=== PATIENT | male | born 1950 | race Caucasian/White ===

== ENCOUNTER 2018-08-14 07:18 | Emergency (ER) ==
[2018-08-14 07:26] VITALS: TEMP 96.8; BMI 28.5
--- NOTE | 2018-08-14 07:53 | ED.PDOC ---
General ED Provider: Dr. ESTIVEN CAO Chief Complaint: Chest Pain Stated Complaint: Chest fullness and pressure. Onset yesterday afternoon with associated SOB and sensation of rapid heart rate. Sensation of pressure and fullness going into anterior lateral neck bilaterally. Admits to sensing similar sensation in the past.Denies sweating, nausea or vomiting. When going to bed last night sensation seemed to lessen and he rested well however upon awakening this morning and getting up symptoms returned and seemed worsen so he had his bring him to ER Time Seen by Physician: 07:28 Mode of Arrival: Walk-In Information Source: Patient, Family Exam Limitations: No limitations Primary Care Provider: ESTIVEN ARRIOLA Nursing and Triage Documentation Reviewed and Agree: Yes Does patient meet sepsis criteria?: No System Inflammatory Response Syndrome: Not Applicable Sepsis Protocol: For patient's 13 years and over: Temp is 96.8 and below OR 101 and greater Pulse >90 BPM Resp >20/minute Acutely Altered Mental Status Are patient's symptoms suggestive of a new infection, such as: -Pneumonia -Skin, Soft Tissue -Endocarditis -UTI -Bone, Joint Infection -Implantable Device -Acute Abdominal Infection -Wound Infection -Meningitis -Blood Stream Catheter Infection -Unknown Cardiovascular Complaint Exam - Palpitations Complaint/Exam Onset/Duration: 24 hrs Symptoms Are: Still present Timing: Constant Initial Severity: Moderate Current Severity: Moderate Character: Reports: Fast, Irregular, Pounding Aggravating: Reports: Exertion (Stressful situatioins) Alleviating: Reports: Rest, Position Associated Signs and Symptoms: Reports: Lightheadedness, Dizziness, Chest pain, Shortness of breath Related History: Similar episode Related Surgical History: Reports: None Cardiac Risk Factors: Reports: Family history Pulmonary Embolism Risk Factors: Reports: None Atrial Fibrillation Risk Factors: Reports: None Thyroid Exam: Normal Differential Diagnoses: Mitral Valve Prolapse, CAD, Paroxysmal SVT, Other ( anxiety) Quality Indicators for AMI: EKG in 10min. Quality Indicator For Non-Traumatic Chest Pain/Syncope: EKG Performed Review of Systems - Review Of Systems Constitutional: Reports: No symptoms Eyes: Reports: No symptoms Ears, Nose, Mouth, Throat: Reports: No symptoms Respiratory: Reports: No symptoms, Other Cardiac: Reports: Irregular heart rate, Palpitations GI: Reports: No symptoms : Reports: No symptoms Musculoskeletal: Reports: No symptoms Skin: Reports: No symptoms Neurological: Reports: No symptoms Endocrine: Reports: No symptoms Hematologic/Lymphatic: Reports: No symptoms All Other Systems: Reviewed and Negative Past Medical History - Past Medical History Previously Healthy: Yes Endocrine: Reports: None Cardiovascular: Reports: Other (rapid heart rate and palpitations) Respiratory: Reports: None Hematological: Reports: None Gastrointestinal: Reports: None Genitourinary: Reports: None Neuro/Psych: Reports: None Musculoskeletal: Reports: None Cancer: Reports: None - Surgical History General Surgical History: Reports: None - Family History Family History: Reports: None - Social History Smoking Status: Former smoker Hx Substance Use: No Alcohol Screening: None Physical Exam - Physical Exam Appearance: Well-appearing, No pain distress, Well-nourished Eyes: QUITA, EOMI, Conjunctiva clear ENT: Ears normal, Nose normal, Oropharynx normal Respiratory: Airway patent, Breath sounds clear, Breath sounds equal, Respirations nonlabored Cardiovascular: RRR, Pulses normal, No rub, No murmur, Irregular rhythm, Tachycardia GI/: Soft, Nontender, No masses, Bowel sounds normal, No Organomegaly Musculoskeletal: Normal strength, ROM intact, No edema, No calf tenderness Skin: Warm, Dry, Normal color Neurological: Sensation intact, Motor intact, Reflexes intact, Cranial nerves intact, Alert, Oriented Psychiatric: Affect appropriate, Mood appropriate Interpretation - EKG Interpretation Time of EKG #1: 08:40 Rate: Tachy Rhythm: Other (afib RVR) Ectopy: PVCs ST Segment: Normal Interpretation: afib rvr Critical Care Note - Critical Care Note Total Time (mins): 60 Comments: Patient has been closely monitored since his admission to the department; Cardiac rhythm Afib RVR. Fluid bolus administered total 1000 cc and rate reduced from 150-160s to 120- 130s. Patient's symptoms of chest and neck discomfort resolved and feeling better. After all lab reviewed; Diltiazem 15 mg bolus administered followed by infusion initially at 10m /hr and reduced to5 mg /hr Dr Arriola contacted. advised and agreed to transfer of the patient to [facility] for admission and further cardiac evaluation Have discussed with patient and family who acknowledge information and are in agreement with transfer Course - Course Hematology/Chemistry: 08/14/18 07:40 08/14/18 07:40 Orders, Labs, Meds: Lab Review 08/14/18 08/14/18 08/14/18 07:40 07:40 07:40 WBC 5.51 RBC 5.10 Hgb 15.2 Hct 43.6 MCV 85.5 MCH 29.8 MCHC 34.9 RDW Coeff of Efrain 12.6 Plt Count 237 Immature Gran % (Auto) 0.2 Neut % (Auto) 49.9 Lymph % (Auto) 33.9 [place] % (Auto) 11.6 H Eos % (Auto) 3.3 Baso % (Auto) 1.1 Immature Gran # (Auto) 0.0 Neut # (Auto) 2.8 Lymph # (Auto) 1.9 [place] # (Auto) 0.6 Eos # (Auto) 0.2 Baso # (Auto) 0.1 D-Dimer (Manual) 463.29 Sodium 139.3 Potassium 4.17 Chloride 108.1 H Carbon Dioxide 25.0 Anion Gap 10.37 BUN 15.5 Creatinine 1.18 H Estimated GFR (MDRD) 62.00 BUN/Creatinine Ratio 13.13 Glucose 112.1 H Calcium 9.45 Total Bilirubin 0.89 AST 30.3 ALT 28.9 Alkaline Phosphatase 66.8 Total Creatine Kinase 118.9 CK-MB (CK-2) 1.010 CK-MB (CK-2) % 0.8400 Troponin I 0.072 Total Protein 7.49 Albumin 4.05 Globulin 3.44 Albumin/Globulin Ratio 1.17 TSH 08/14/18 07:40 WBC RBC Hgb Hct MCV MCH MCHC RDW Coeff of Efrain Plt Count Immature Gran % (Auto) Neut % (Auto) Lymph % (Auto) [place] % (Auto) Eos % (Auto) Baso % (Auto) Immature Gran # (Auto) Neut # (Auto) Lymph # (Auto) [place] # (Auto) Eos # (Auto) Baso # (Auto) D-Dimer (Manual) Sodium Potassium Chloride Carbon Dioxide Anion Gap BUN Creatinine Estimated GFR (MDRD) BUN/Creatinine Ratio Glucose Calcium Total Bilirubin AST ALT Alkaline Phosphatase Total Creatine Kinase CK-MB (CK-2) CK-MB (CK-2) % Troponin I Total Protein Albumin Globulin Albumin/Globulin Ratio TSH 2.510 Orders Category Date Time Status EKG-(ED ONLY) Stat CARDIO 08/14/18 07:59 Completed EKG-(ED ONLY) Stat CARDIO 08/14/18 10:17 Completed Adjunct Lecturer [ED SPRING MAKER APPLIED] .ONCE EMERGENCY 08/14/18 08:03 Active IV [ED IV/MEDIPORT/POWERPORT] .ONCE EMERGENCY 08/14/18 07:59 Active O2 [ED APPLY O2] .ONCE EMERGENCY 08/14/18 08:02 Active CBC W/ AUTO DIFF Stat LAB 08/14/18 07:40 Completed CMP [COMPREHENSIVE METABOLIC PANEL] Stat LAB 08/14/18 07:40 Completed CPK [CREATINE KINASE] Stat LAB 08/14/18 07:40 Completed D-DIMER Stat LAB 08/14/18 07:40 Completed EHRLICHIA DNA, PCR Stat LAB 08/14/18 07:40 Received LYME, WESTERN BLOT, SERUM Stat LAB 08/14/18 07:40 Received BRITTANY MTN SPOTTED FEVER,IgG Stat LAB 08/14/18 07:40 Received BRITTANY MTN SPOTTED FEVER,IgM Stat LAB 08/14/18 07:40 Received THYROID STIMULATING HORMONE Stat LAB 08/14/18 07:40 Completed TROPONIN I Stat LAB 08/14/18 07:40 Completed UA [URINALYSIS C & S IF INDICATED] Stat LAB 08/14/18 07:59 Uncollected URINE DRUG SCREEN (RAPID FOR ED) [DRUG SCREEN, URINE, LAB 08/14/18 07:59 Uncollected RAPID] Stat 0.9 % Sodium Chloride [Saline Flush] MEDS 08/14/18 08:00 Active 1 syr IVF PRN PRN 0.9 % Sodium Chloride [Saline Flush] MEDS 08/14/18 08:00 Active 1 syr IVF PRN PRN 0.9 % Sodium Chloride [Sodium Chloride] 100 ml MEDS 08/14/18 09:30 Active Diltiazem HCl Inj [Cardizem Inj] 125 mg IV 10 mg/hr Diltiazem HCl Inj [Cardizem Inj] MEDS 08/14/18 08:59 Discontinued 15 mg IVP ONCE STA Diltiazem HCl Inj [Cardizem Inj] MEDS 08/14/18 09:31 Discontinued 150 mg .ROUTE .STK-MED ONE Enoxaparin Sodium [Lovenox] MEDS 08/14/18 09:01 Discontinued 100 mg SUBCUT ONCE STA Enoxaparin Sodium [Lovenox] MEDS 08/14/18 09:35 Discontinued 100 mg SUBCUT ONCE STA Enoxaparin Sodium [Lovenox] MEDS 08/14/18 09:01 Discontinued 40 mg SUBCUT ONCE STA Sodium Chloride 0.9% [Sodium Chloride] 1,000 ml MEDS 08/14/18 08:00 Discontinued IV BOLUS CHEST, 1V AP ONLY Stat RADS 08/14/18 07:59 Completed Medications Generic Name Dose Route Start Last Admin Trade Name Freq PRN Reason Stop Dose Admin Diltiazem HCl 125 mg/ Sodium 125 mls @ 10 mls/hr 08/14/18 09:30 08/14/18 09: 48 Chloride IV 5 mg/hr .[id number] MAYE 5 mls/hr Titration Protocol 10 MG/HR Sodium Chloride 1 syr 08/14/18 08:00 Saline Flush IVF PRN PRN To flush IV Sodium Chloride 1 syr 08/14/18 08:00 08/14/18 08:10 Saline Flush IVF 1 syr PRN PRN Administration To flush IV Discontinued Medications Generic Name Dose Route Start Last Admin Trade Name Freq PRN Reason Stop Dose Admin Diltiazem HCl 15 mg 08/14/18 08:59 08/14/18 09:28 Cardizem Inj IVP 08/14/18 09:00 15 mg ONCE STA Administration Enoxaparin Sodium 40 mg 08/14/18 09:01 08/14/18 09:31 Lovenox SUBCUT 08/14/18 09:02 Not Given ONCE STA Enoxaparin Sodium 100 mg 08/14/18 09:01 08/14/18 09:50 Lovenox SUBCUT 08/14/18 09:02 Not Given ONCE STA Enoxaparin Sodium 100 mg 08/14/18 09:35 08/14/18 09:40 Lovenox SUBCUT 08/14/18 09:36 100 mg ONCE STA Administration Sodium Chloride 1,000 mls @ 500 mls/hr 08/14/18 08:00 08/14/18 08:10 Sodium Chloride IV 08/14/18 09:59 500 mls/hr BOLUS STA Administration Vital Signs: Temp Pulse Resp BP Pulse Ox 08/14/18 09:48 65 20 109/86 08/14/18 09:29 116 H 20 146/100 H 08/14/18 07:20 96.8 F L 90 20 112/65 95 ISIS Risk Score ISIS Risk Score: Risk Score Odds of by 30D 0 0.1 (0.1-0.2) 1 0.3 (0.2-0.3) 2 0.4 (0.3-0.5) 3 0.7 (0.6-0.9) 4 1.2 (1.0-1.5) 5 2.2 (1.9-2.6) 6 3.0 (2.5-3.6) 7 4.8 (3.8-6.1) Departure - Departure Time of Disposition: 10:30 Disposition: TSF SHORT-TRM HOSP Discharge Problem: Atrial fibrillation with rapid ventricular response Instructions: A-fib (Atrial Fibrillation) (ED) Condition: Stable Pt referred to PMD for follow-up: Yes IPMP verified?: No Additional Instructions: Transfer to [facility] direct admit Allergies/Adverse Reactions: Allergies No Known Allergies Allergy (Unverified 05/27/14 12:44) Home Medications: Ambulatory Orders Aspirin [Aspirin EC] 1 tab PO DAILY 05/27/14 Escitalopram Oxalate [Lexapro] 1 tab PO DAILY 05/27/14 Naproxen Sodium [Aleve] 1 tab PO DAILY PRN 05/27/14 Omeprazole Magnesium [Prilosec Otc] 20 mg PO DAILY 05/31/14 Transfer Form Completed: Yes Disposition Discussed With: Patient, Family, Other (Dr Arriola)
[2018-08-14] MEDS ORDERED: SODIUM CHLORIDE 1,000 ML IV STA (08:00)
--- NOTE | 2018-08-14 08:38 | DI ---
Exam: Single view of the chest. Comparison: None available. Reason for exam: Chest pain with palpitations FINDINGS: No pneumothorax, pleural effusion, or focal consolidation. The cardiac silhouette is not enlarged. The imaged osseous structures appear grossly unremarkable without acute fracture. Impression: No acute cardiopulmonary process.
[2018-08-14] MEDS ORDERED: CARDIZEM INJ IVP STA (08:59)
[2018-08-14] MEDS ORDERED: LOVENOX SUBCUT STA ×3 (09:01→09:35)
[2018-08-14] MEDS ORDERED: CARDIZEM INJ 125 MG in SODIUM CHLORIDE 100 ML IV SCH (09:30)
[2018-08-14] MEDS ORDERED: CARDIZEM INJ ONE (09:31)
[2018-08-14 09:50] VITALS: BP 109/86
== END 2018-08-14 10:50 | disposition short-term general hospital (02) ==
LOC: ED 07:18
DX: I48.91 Unspecified atrial fibrillation (principal); R06.02 Shortness of breath; R07.9 Chest pain, unspecified; R42 Dizziness and giddiness
CPT/HCPCS: 36415; 80053; 82550; 82553; 84443; 84484; 85025; 85379; 86617; 86757; 87798; 93005; 93010; 96361; 96365; 96372; 96375; 99285

== ENCOUNTER 2023-06-19 07:31 | Observation (INO) ==
--- NOTE | 2023-06-19 07:40 | ED.PDOC ---
General ED Provider: Dr. PRECIOUS SILVERMAN MD Chief Complaint: Syncope Stated Complaint: Syncopal episode. 72-year-old male presents the ER via EMS after syncopal episode. Patient states he has been experiencing intermittent dizziness for a while. States that this week he was [place] local [place] when he had a syncopal episode. Was taken to a local emergency department and released after a few hours. States this morning upon waking he felt dizzy again. Had another syncopal episo de. EMS arrived to find him on the ground. Patient was initially hypotensive to the 80s. When they got him into the stair chair his blood pressure was in the 150s systolic. Initial oxygen saturation was 89%. States that he has had passing out episodes intermittently for years. States they have been worse recently. Denies any chest pain. Denies any heart racing or skipping beats. No recent change in his medications. No recent illness. Denies any black or bloody stools. Time Seen by Provider: 06/19/23 07:35 Mode of Arrival: Ambulance Information Source: Patient and EMT Primary Care Provider: ESTIVEN CARDONA Nursing and Triage Documentation Reviewed and Agree: Yes Review of Systems Review Of Systems Constitutional: Reports Weakness Cardiac: Reports Lightheadedness and Syncope All Other Systems: Reviewed and Negative [facility] Medical History (Updated 06/19/23 @ 09:15 by PRECIOUS SILVERMAN MD) Depression F32.9 - Major depressive disorder, single episode, unspecified (ICD-10) Family History Mother Diabetes Surgical History (Updated 07/18/20 @ 08:54 [facility] Status post appendectomy Z90.49 - Acquired absence of other specified parts of digestive tract (ICD- 10) Physical Exam Physical Exam Appearance: Reports Well-appearing Ill-appearing: None Pain Distress: None Eyes: Reports QUITA and EOMI ENT: Reports Ears normal and Oropharynx normal Neck: Supple Respiratory: Reports Airway patent, Breath sounds clear and Breath sounds equal Cardiovascular: Reports RRR, Pulses normal, No rub and No murmur GI/: Reports Soft and Nontender Musculoskeletal: Reports Normal strength, ROM intact, No edema and No calf tenderness Skin: Reports Warm, Dry and Normal color Neurological: Reports Alert and Oriented Psychiatric: Reports Affect appropriate Interpretation EKG Interpretation EKG Interpretation By: ED Physician Time of EKG #1: 08:06 Rate: Jose Alejandro Rhythm: Sinus Ectopy: None [place]: Left ST Segment: Normal Interpretation: No acute abnormalities Critical Care Note Critical Care Note Total Critical Care Time (mins): 0 Course Course 06/19/23 07:50 06/19/23 07:50 Orders, Labs, Meds: Lab Review 06/19/23 06/19/23 07:45 07:50 WBC 10.37 H RBC 4.49 L Hgb 13.7 L Hct 39.9 L MCV 88.9 MCH 30.5 MCHC 34.3 RDW Coeff of Efrain 12.4 Plt Count 207 Immature Gran % (Auto) 0.5 Neut % (Auto) 79.5 H Lymph % (Auto) 7.2 L [place] % (Auto) 12.2 H Eos % (Auto) 0.1 Baso % (Auto) 0.5 Neut # (Auto) 8.3 H Lymph # (Auto) 0.8 [place] # (Auto) 1.3 Eos # (Auto) 0.0 Baso # (Auto) 0.1 Immature Gran # (Auto) 0.1 Puncture Site Rbrach Base Excess -1.9 O2 Saturation 97.7 ABG pH 7.47 H ABG pCO2 30.0 L ABG pO2 93.0 ABG HCO3 21.8 ABG Total CO2 22.7 Fabian Test Na Hemoglobin 1.1 Oxyhemoglobin 94.1 L Carboxyhemoglobin 3.0 H Total Hemoglobin 14.1 FiO2 % 21.0 Sodium 132.5 L Potassium 4.02 Chloride 103.7 Carbon Dioxide 23.7 Anion Gap 9.12 BUN 17.2 Creatinine 1.33 H Estimated GFR (MDRD) 53.00 BUN/Creatinine Ratio 12.93 Glucose 134.5 H Lactic Acid 0.83 Calcium 8.41 Total Bilirubin 1.29 AST 24.5 ALT 22.4 Alkaline Phosphatase 67.8 Troponin I < 0.012 NT-Pro-B Natriuret Pep 747 H Total Protein 7.08 Albumin 3.75 Globulin 3.33 Albumin/Globulin Ratio 1.12 Procalcitonin 0.19 H D-Dimer 464.47 Orders Category Date Time Status ADMIT OBSERVATION [PLACE PATIENT OBSERVATION] .TO ADMISSION 06/19/23 09:13 Ordered MEDSURG (MONITORED BED) ABG DRAW REQUEST Stat CARDIO 06/19/23 07:35 Completed EKG-(ED ONLY) Stat CARDIO 06/19/23 07:35 Completed TELEMETRY MONITORING TELE CARE 06/19/23 09:13 Ordered Orthostatic Vital Signs [ED ORTHOSTATIC VITAL SIGNS] . EMERGENCY 06/19/23 07:45 Active ONCE ABG COOX Stat LAB 06/19/23 07:45 Completed C-REACTIVE PROTEIN Stat LAB 06/19/23 07:50 Stop Req CBC W/ AUTO DIFF Stat LAB 06/19/23 07:50 Completed CMP [COMPREHENSIVE METABOLIC PANEL] Stat LAB 06/19/23 07:50 Completed D-DIMER Stat LAB 06/19/23 07:50 Completed ED PROBNP [NT-PROBNP(ED)] Stat LAB 06/19/23 07:50 Completed LACTIC ACID Stat LAB 06/19/23 07:50 Completed PROCALCITONIN Stat LAB 06/19/23 07:50 Completed TROPONIN I Stat LAB 06/19/23 07:50 Completed UA [URINALYSIS C & S IF INDICATED] Stat LAB 06/19/23 07:36 Uncollected Doxycycline Hyclate Inj [Doxy-100] 100 mg Meds 06/19/23 08:39 Active 0.9 % Sodium Chloride [Sodium Chloride 100Ml] 100 ml IV ONCE Sodium Chloride 0.9% [Sodium Chloride] 1,000 ml Meds 06/19/23 08:17 Active IV BOLUS CHEST, 1V AP ONLY Stat RADS 06/19/23 07:[address] HEAD W/O CONTRAST Stat RADS 06/19/23 07:36 Completed Medications Generic Name Dose Route Start Last Admin Trade Name Freq PRN Reason Stop Dose Admin Sodium Chloride 1,000 mls @ 1,000 mls/hr 06/19/23 08:17 06/19/23 08:25 Sodium Chloride IV 06/19/23 09:16 1,000 mls/hr BOLUS STA Administration Doxycycline Hyclate 100 mg/ 100 mls @ 50 mls/hr 06/19/23 08:39 06/19/23 08:52 Sodium Chloride IV 06/19/23 10:38 50 mls/hr ONCE ONE Administration Laboratory evaluation grossly unremarkable. Chest x-ray with possible right perihilar infiltrates. CT brain negative. Vital Signs: Temp Pulse Resp BP Pulse Ox 06/19/23 08:23 72 73/57 L 06/19/23 08:23 58 L 108/63 06/19/23 08:22 56 L 124/56 L 06/19/23 07:32 98.7 F 57 L 20 132/63 92 L Concern for arrhythmia, orthostasis, myocardial event, vasovagal syncope, dehydration, sepsis, overmedication. Plan to initiate work-up with laboratory testing, EKG, patient placed on personnel monitor. Will obtain orthostatics. Attempting to obtain records from hospital in [place] where he was 2 days ago. Positive orthostatics. Patient dropped to 73/50 upon standing and became incredibly dizzy and almost passed out again. IV fluids ordered. 8:37 AM Patient notified of results of chest x-ray demonstrating pneumonia. states that yesterday he had a cough that he thought was unusual and reported some chest pain when he coughed. I suspect that that could be related to his pneumonia. Cardiac enzymes are negative. Currently awaiting D-dimer. We will start antibiotic therapy. Given his hypotension, syncope, hypoxia, pneumonia will admit to the hospital for hydration, antibiotics. Patient taking amiodarone. We will avoid Zithromax and Levaquin for antibiotic therapy. We will start doxycycline for community-acquired pneumonia. While patient is hypotensive, this is likely related to volume status. Patient does not have lactic acidosis to suggest sepsis. No other vital signs for SIRS or severe sepsis. I offered transfer to [facility] where the patient has had healthcare in the past versus admission at our facility. They prefer admission at our facility at this time. If needed, patient does have a stoneworker, Dr. Cardenas. He was actually scheduled to see him today but ended up in the emergency department instead. 9:13 AM D-dimer negative. Case discussed with hospitalist FARSHAD Farnsworth. Patient to be admitted for observation. ISIS Risk Score ISIS Risk Score: Risk Score Odds of by 30D 0 0.1 (0.1-0.2) 1 0.3 (0.2-0.3) 2 0.4 (0.3-0.5) 3 0.7 (0.6-0.9) 4 1.2 (1.0-1.5) 5 2.2 (1.9-2.6) 6 3.0 (2.5-3.6) 7 4.8 (3.8-6.1) Discharge Plan Discharge Patient Disposition: PLACED OBSERVATION Discharge Problem: Orthostatic hypotension, Syncope, Pneumonia Prescriptions: No Action fluticasone propionate [Flonase Allergy Relief] 9.9 ML spray,suspension 2 spray NS DAILY Qty: 1 escitalopram oxalate [Lexapro] 20 MG tablet 1 tab PO DAILY omeprazole magnesium [Prilosec OTC] 20 MG tablet,delayed release (DR/EC) 20 mg PO DAILY ondansetron 4 mg tablet,disintegrating 4 mg PO Q8H PRN (Reason: nausea and vomiting) meclizine 25 mg tablet 25 mg PO TID PRN (Reason: dizziness) amiodarone 200 mg Tablet 200 mg PO DAILY lisinopril 10 mg Tablet 10 mg PO DAILY Xarelto 20 mg Tablet 20 mg PO QPM Did you review [place] [employer] for ALL controlled substances?: Not Applicable ED Provider: PRECIOUS SILVERMAN Condition: Fair Physician Progress Note: []
[2023-06-19 07:56] LABS: ABG O2 HGB 94.1 % (95-100); ABG PH 7.47 (7.35-7.45); BEecf -1.9 (-2.0-3.0); HCO3 21.8 (21-28); MetHb 1.1 (0-1.5); TCO2 22.7 (19-24); sO2 97.7 % (94-98); tHb 14.1 g/dl (11.7-17.4)
[2023-06-19 07:56] LABS: BASOPHILS # (AUTO) 0.1 K/uL (0-0.2); BASOPHILS % (AUTO) 0.5 % (0.0-3.0); EOSINOPHILS % (AUTO) 0.1 % (0.0-7.0); HEMATOCRIT 39.9 % (42.0-52.0); HEMOGLOBIN 13.7 g/dl (14.0-18.0); IMMATURE GRANULOCYTE # (AUTO) 0.1 (0.0-1.0); IMMATURE GRANULOCYTE % (AUTO) 0.5 % (0.0-5.0); LYMPHOCYTES # (AUTO) 0.8 K/uL (0.60-3.4); LYMPHOCYTES % (AUTO) 7.2 (10.0-50.0); MEAN CORPUSCULAR HEMOGLOBIN 30.5 pg (27.0-31.0); MEAN CORPUSCULAR HGB CONC 34.3 (31.8-35.4); MEAN CORPUSCULAR VOLUME 88.9 fl (80.0-94.0); MONOCYTES # (AUTO) 1.3 K/uL (0.4-2.0); MONOCYTES % (AUTO) 12.2 (0-10); NEUTROPHILS # (AUTO) 8.3 K/ul (2.0-6.9); NEUTROPHILS % (AUTO) 79.5 % (42.2-75.2); PLATELET COUNT 207 10^3/uL (140-440); RDW COEFFICIENT OF VARIATION 12.4 % (11.6-14.8); RED BLOOD COUNT 4.49 10^6/ul (4.70-6.10); WHITE BLOOD COUNT 10.37 K/ul (4.2-10.2)
[2023-06-19 08:08] LABS: ALANINE AMINOTRANSFERASE 22.4 U/L (0-50); ALBUMIN 3.75 g/dL (3.5-5.0); ALKALINE PHOSPHATASE 67.8 U/L (56-119); ASPARTATE AMINO TRANSFERASE 24.5 U/L (17-59); BILIRUBIN,TOTAL 1.29 mg/dL (0.2-1.3); BLOOD UREA NITROGEN 17.2 mg/dL (9-20); CALCIUM 8.41 mg/dL (8.4-10.2); CARBON DIOXIDE 23.7 mmol/L (22-30.0); CHLORIDE 103.7 mmol/L (98-107); CREATININE 1.33 mg/dL (0.60-1.10); GLUCOSE 134.5 mg/dL (74-106); POTASSIUM 4.02 mmol/L (3.5-5.1); SODIUM 132.5 mmol/L (134.5-145); TOTAL PROTEIN 7.08 g/dL (6.3-8.2)
[2023-06-19] MEDS ORDERED: SODIUM CHLORIDE 1,000 ML IV STA (08:17)
--- NOTE | 2023-06-19 08:19 | DI ---
EXAM: CHEST ONE-VIEW HISTORY: Syncope COMPARISON: 12/03/2020 CT of the chest FINDINGS: Cardiac silhouette is normal. Left lung is clear. Mild right perihilar interstitial opac ities present. This is suspicious for viral or interstitial pneumonia. Pleural surfaces are unremar kable. IMPRESSION: Right perihilar interstitial opacities suspicious for viral or interstitial pneumonia.
[2023-06-19 08:22] LABS: TROPONIN I < 0.012 ng/ml (0.0000-0.120)
--- NOTE | 2023-06-19 08:23 | CT ---
EXAMINATION: CT OF THE HEAD WITHOUT CONTRAST. HISTORY:Fall. COMPARISON:12/03/2020. TECHNIQUE: CT acquisition images were obtained from skull base through vertex. Multiplanar reformat s were obtained. No intravenous contrast. FINDINGS: Acute intracranial hemorrhage, mass effect, or midline shift: None. Ventricles and sulci: Congruent in size and configuration with mild age related atrophy.. Sherwood white differentiation: Maintained. Mild periventricular white matter low density. Basilar cisterns patent. The posterior fossa is without significant abnormality. No acute extra-axial collection. The extracalvarial soft tissues are without significant abnormalities. Mastoids and paranasal sinuses: Aerated. Carotid atherosclerosis: Present. Osseous structures: Intact without acute fracture. IMPRESSION: No acute intracranial abnormality. Age related atrophy with mild periventricular white matter low density most consistent with chronic m icrovascular ischemic change. All CT scans are performed using dose optimization techniques as appropriate to the performed exam an d include at least one of the following: Automated exposure control, adjustment of the mA and/or kV according t o size, and the use of iterative reconstruction technique.
[2023-06-19] MEDS ORDERED: DOXY-100 100 MG in SODIUM CHLORIDE 100ML 100 ML IV ONE (08:39)
[2023-06-19] MEDS ORDERED: TYLENOL PO PRN (09:32)
[2023-06-19] MEDS ORDERED: ZOFRAN 4 MG/2 ML IVP PRN (09:32)
--- NOTE | 2023-06-19 09:46 | PCM ---
Date of Service Date Seen by Provider: 06/19/23 Time Seen by Provider: 09:45 Admit Day/Time Admission Date: 06/19/23 Admission Time: 09:13 Reason for Admission Chief Complaint: PENUMONIA, SYNCOPE Hospital Provider Hospital Provider: MARIA SCHULTZ PA-C, [facility] Primary Care Physician Primary Care Physician: ESTIVEN CARDONA History of Present Illness History of Present Illness: Patient is a 72-year-old male with past medical history of atrial fibrillation, hypertension, GERD who presented to the ER with complaint of syncope. He has had syncope in the past several years. He states he did not seek help most of the time. He had a syncopal episode earlier this week. He was evaluated in an ER in [place] and discharged from the ER. Today he was standing in his bathroom shaving whenever he felt lightheaded and passed out. He denies any significant injury. Upon arrival EMS states that his blood pressure was in the 80s systolic. He was also 89% on room air. In the ER he was found to have significant orthostatic hypotension with a systolic dropping from the 120s into the 70s. He also felt very symptomatic and like he was going to pass out again. He feels most comfortable lying flat. He states that he has had some dizziness on and off with positional changes. No recent medication changes. Denies chest pain although he did say he has been coughing lately and that is sometimes been painful. His chest x-ray in the ER did show some right-sided pneumonia. He was given doxycycline and fluids. Per cardiology notes, "he was diagnosed with afib in 2017 and spontaneously converted while inpatient. He reported back in 07/2019 with complaints of SOB, fatigue and orthopnea. He was noted to be in afib at that time and underwent a successful DCCV. He had a follow up EKG in 08/2019 that noted him to be back in afib. He was started on Amiodarone and underwent another successful DCCV in November 2019. He has since remained in NSR." Patient thought that he has had an echo in the last year. However the last one found in [facility] records was 2018. Case Discussed With Case Discussed With: Patient's case was discussed with the ER Physicians, Dr. Mindy Roberts. [facility] Medical History Depression F32.9 - Major depressive disorder, single episode, unspecified (ICD-10) Surgical History Status post appendectomy Z90.49 - Acquired absence of other specified parts of digestive tract (ICD- 10) Family History Mother Diabetes FATHER Lung cancer Social History (Updated 06/19/23 @ 10:27 by MARIA SCHULTZ PA-C) Smoking and tobacco status: Never smoker Alcohol intake: never Substance use type: does not use Household members: spouse Current occupational status: employed Allergies Allergies Allergy/AdvReac Type Severity Reaction Status Date / Time No Known Allergies Allergy Verified 06/19/23 07:42 Current Medications Home Medications escitalopram oxalate 20 mg tablet (Lexapro) 1 tab PO DAILY 05/27/14 [History Confirmed 06/19/23 Last Taken 05/27/14] omeprazole magnesium 20 mg tablet,delayed release (Prilosec OTC) 20 mg PO DAILY 05/31/14 [History Confirmed 06/19/23 Last Taken 05/27/14] fluticasone propionate 50 mcg/actuation nasal spray,suspension (Flonase Allergy Relief) 2 spray NS DAILY #1 spray 01/08/17 [History Confirmed 06/19/23 Last Taken Unknown] amiodarone 200 mg tablet 200 mg PO DAILY 05/27/20 [History Confirmed 06/19/23 Last Taken Unknown] lisinopril 10 mg tablet 10 mg PO DAILY 05/27/20 [History Confirmed 06/19/23 Last Taken Unknown] rivaroxaban 20 mg tablet (Xarelto) 20 mg PO QPM 05/27/20 [History Confirmed 06/19/23 Last Taken Unknown] meclizine 25 mg tablet 25 mg PO TID PRN dizziness 06/19/23 [History Confirmed 06/19/23 Last Taken Unknown] ondansetron 4 mg disintegrating tablet 4 mg PO Q8H PRN nausea and vomiting 06/19/23 [History Confirmed 06/19/23 Last Taken Unknown] Home Acetaminophen (Acetaminophen 325 Mg Tablet) 650 mg PO Q4H PRN PRN Reason: Mild Pain CEFTRIAXONE/D5W 1 GM PREMIX (Rocephin 1 Gm/50 Ml D5w) 1 gm in 50 mls @ 75 mls/hr IV DAILY MAYE Stop: 06/22/23 09:59 Doxycycline Hyclate 100 mg/ (Sodium Chloride) 100 mls @ 50 mls/hr IV Q12HR MAYE Stop: 06/22/23 20:59 Lactated Ringer's (Lactated Ringers) 1,000 mls @ 100 mls/hr IV .Q10H MAYE Ondansetron HCl (Ondansetron Hcl/Pf 4 Mg/2 Ml Sdv) 4 mg IVP Q6H PRN PRN Reason: Nausea / Vomiting Discontinued Medications Sodium Chloride (Sodium Chloride) 1,000 mls @ 1,000 mls/hr IV BOLUS STA Stop: 06/19/23 09:16 Last Admin: 06/19/23 08:25 Dose: 1,000 mls/hr Doxycycline Hyclate 100 mg/ (Sodium Chloride) 100 mls @ 50 mls/hr IV ONCE ONE Stop: 06/19/23 10:38 Last Admin: 06/19/23 08:52 Dose: 50 mls/hr Review of Systems Constitutional: Reports Chills; Denies Fever Head: Reports Normocephalic and Atraumatic Eyes: Denies Vision Changes Throat: Denies Sore Throat or Difficulty Swallowing Cardiovascular: Denies Chest pain, Diaphoresis or Edema Respiratory: Reports Cough; Denies Shortness of air Gastrointestinal: Denies Nausea, Vomiting or Abdominal pain Genitourinary: Denies Dysuria or Frequency Dermatologic: Denies Rashes Neurological: Reports Dizziness and Syncope; Denies Headache or Seizure Physical examination Most Recent Vital Signs: Most Recent Vital Signs Temperature 98.7 F 06/19/23 07:32 Temperature Source Oral 06/19/23 07:32 Pulse Rate 72 06/19/23 08:23 Respiratory Rate 20 06/19/23 07:32 Blood Pressure 73/57 L 06/19/23 08:23 Blood Pressure Location Right Arm 06/19/23 08:23 Blood Pressure Position Standing 06/19/23 08:23 O2 Sat by Pulse Oximetry 92 L 06/19/23 07:32 Height 5 ft 7 in 06/19/23 07:32 Weight 185 lb 06/19/23 07:36 Appearance: Positive Well-appearing and Well-nourished Skin: Positive Marine, Warm, Good Turgor and Good Color; Negative Rashes HEENT: Positive Normocephalic and Atraumatic Neck: Positive Supple and Midline Trachea; Negative JVD Chest/Lungs: Positive Clear to Auscultation Bilaterally; Negative Rales, Rhonci or Wheezes Heart: Positive RRR GI/: Positive Soft, Nontender, Bowel Sounds Normal and No Distention Extremities: Negative Edema Neurological: Positive Cranial Nerves Intact, Alert, Oriented and Muscle Strength 5/5 in Upper and Lower Extremities Bilaterally Psychiatric: Positive Oriented x4, Appropriate Mood, Appropriate Affect, Intact Memory, Normal Judgement and Normal Insight Labs This Visit Labs This Visit: Labs This Visit 06/19/23 06/19/23 07:45 07:50 WBC 10.37 H RBC 4.49 L Hgb 13.7 L Hct 39.9 L MCV 88.9 MCH 30.5 MCHC 34.3 RDW Coeff of Efrain 12.4 Plt Count 207 Immature Gran % (Auto) 0.5 Neut % (Auto) 79.5 H Lymph % (Auto) 7.2 L [place] % (Auto) 12.2 H Eos % (Auto) 0.1 Baso % (Auto) 0.5 Neut # (Auto) 8.3 H Lymph # (Auto) 0.8 [place] # (Auto) 1.3 Eos # (Auto) 0.0 Baso # (Auto) 0.1 Immature Gran # (Auto) 0.1 Puncture Site Rbrach Base Excess -1.9 O2 Saturation 97.7 ABG pH 7.47 H ABG pCO2 30.0 L ABG pO2 93.0 ABG HCO3 21.8 ABG Total CO2 22.7 Fabian Test Na Hemoglobin 1.1 Oxyhemoglobin 94.1 L Carboxyhemoglobin 3.0 H Total Hemoglobin 14.1 FiO2 % 21.0 Sodium 132.5 L Potassium 4.02 Chloride 103.7 Carbon Dioxide 23.7 Anion Gap 9.12 BUN 17.2 Creatinine 1.33 H Estimated GFR (MDRD) 53.00 BUN/Creatinine Ratio 12.93 Glucose 134.5 H Lactic Acid 0.83 Calcium 8.41 Total Bilirubin 1.29 AST 24.5 ALT 22.4 Alkaline Phosphatase 67.8 Troponin I < 0.012 NT-Pro-B Natriuret Pep 747 H Total Protein 7.08 Albumin 3.75 Globulin 3.33 Albumin/Globulin Ratio 1.12 Procalcitonin 0.19 H D-Dimer 464.47 Imaging Imaging: EXAMINATION: CT OF THE HEAD WITHOUT CONTRAST. HISTORY:Fall. COMPARISON:12/03/2020. TECHNIQUE: CT acquisition images were obtained from skull base through vertex. Multiplanar reformats were obtained. No intravenous contrast. FINDINGS: Acute intracranial hemorrhage, mass effect, or midline shift: None. Ventricles and sulci: Congruent in size and configuration with mild age related atrophy.. Sherwood white differentiation: Maintained. Mild periventricular white matter low density. Basilar cisterns patent. The posterior fossa is without significant abnormality. No acute extra-axial collection. The extracalvarial soft tissues are without significant abnormalities. Mastoids and paranasal sinuses: Aerated. Carotid atherosclerosis: Present. Osseous structures: Intact without acute fracture. IMPRESSION: No acute intracranial abnormality. Age related atrophy with mild periventricular white matter low density most consistent with chronic microvascular ischemic change. EXAM: CHEST ONE-VIEW HISTORY: Syncope COMPARISON: 12/03/2020 CT of the chest FINDINGS: Cardiac silhouette is normal. Left lung is clear. Mild right perihilar interstitial opacities present. This is suspicious for viral or interstitial pneumonia. Pleural surfaces are unremarkable. IMPRESSION: Right perihilar interstitial opacities suspicious for viral or interstitial pneumonia. EKG Interpretation EKG Interpretation: sinus jacqui, HR 54, no stemi. Review Statement Review Statement: I have independently reviewed and interpreted the labs/EKGs/imaging that were ordered by the ER provider. I have reviewed all outside records that are available currently in our EMR including imaging/notes/labs from previous visits. Plan Plan: 1. Syncope in setting of orthostatic hypotension - Check echo. Tele. Marcio hose and fluids. Repeat orthostatics this evening. Will hold lisinopril. CT head negative. 2. Orthostatic hypotension - Plan as above 3. CAP, right - Will do rocephin and doxycycline. RT consult. Only on 1L at this time, wean when able. 4. Hyponatremia, mild - Cont fluids 5. PAF s/p cardioversion - Continue amiodarone and xarelto 6. Hypertension - Hold lisinopril 7. GERD - Continue home meds DVT Prophylaxis: Xarelto Time Spent: Greater than 80 minutes spent with patient, 50% of the time spent with this patient was devoted to counseling and coordination of care. Advanced Care Planning: FULL CODE 3 minutes spent discussing advance care planning. Admit to: Obs Discussed Plan of Care with Dr. Campbell Beckford. Medications Medication Orders: Medications Ordered Category Date Time Status Acetaminophen [Tylenol] Meds 06/19/23 09:32 Active 650 mg PO Q4H PRN Ceftriaxone/D5w 1 gm Premix [Rocephin 1 gm/50 ml D5w] Meds 06/19/23 10:00 Active 1 gm in 50 ml IV DAILY Doxycycline Hyclate Inj [Doxy-100] 100 mg Meds 06/19/23 08:39 Active 0.9 % Sodium Chloride [Sodium Chloride 100Ml] 100 ml IV ONCE Doxycycline Hyclate Inj [Doxy-100] 100 mg Meds 06/19/23 21:00 Active 0.9 % Sodium Chloride [Sodium Chloride 100Ml] 100 ml IV Q12HR Ondansetron HCl/Pf [Zofran 4 mg/2 ml] Meds 06/19/23 09:32 Active 4 mg IVP Q6H PRN Ringers Lactated Solution [Lactated Ringers] 1,000 ml Meds 06/19/23 10:00 Active IV 100 mls/hr
[2023-06-19 10:15] VITALS: RESP 16; BMI 31.0
[2023-06-19 10:44] LABS: BILIRUBIN,URINE Negative (NEGATIVE); CLARITY,URINE Clear (CLEAR); COLOR,URINE Yellow (YELLOW); GLUCOSE, URINE (UA) Negative (NEGATIVE); KETONES,URINE Negative (NEGATIVE); LEUKOCYTE ESTERASE ,URINE Negative (NEGATIVE); NITRITE,URINE Negative (NEGATIVE); PROTEIN,URINE Trace (NEGATIVE); URINE, BLOOD Negative (NEGATIVE)
[2023-06-19 10:45] LABS: SQUAMOUS EPITHELIAL CELL,UR NOT PRESENT (0-5)
[2023-06-19 10:53] LABS: BACTERIA,URINE TRACE (NOT PRESENT); MUCUS,URINE 3+ (NOT PRESENT); TRIPLE PHOSPHATE CRYSTAL,UR 1+ (NOT PRESENT)
[2023-06-19] MEDS ORDERED: NON-FORMULARY MEDICATION (Omeprazole Magnesium [Prilosec Otc] 20 MG tablet,delayed release PO SCH (11:00)
[2023-06-19] MEDS: PRILOSEC PO SCH (11:27)
[2023-06-19] MEDS: LEXAPRO PO SCH (11:27)
[2023-06-19] MEDS: CORDARONE PO SCH (11:27)
[2023-06-19] MEDS: ROCEPHIN 1 GM/50 ML D5W 1 GM/50 ML BAG IV SCH (11:27)
[2023-06-19] MEDS: LACTATED RINGERS 1,000 ML IV SCH (13:34)
[2023-06-19] MEDS ORDERED: ROBAXIN PO ONE (16:58)
[2023-06-19] MEDS ORDERED: XARELTO PO SCH (17:00)
[2023-06-19] MEDS: DOXY-100 100 MG in SODIUM CHLORIDE 100ML 100 ML IV SCH (20:16)
[2023-06-19] MEDS ORDERED: BENADRYL PO ONE (23:49)
[2023-06-20] MEDS: LACTATED RINGERS 1,000 ML IV SCH ×2 (01:46→11:21)
[2023-06-20 04:59] LABS: BASOPHILS % (AUTO) 0.5 % (0.0-3.0); EOSINOPHILS # (AUTO) 0.1 K/ul (0.0-0.7); EOSINOPHILS % (AUTO) 1.6 % (0.0-7.0); HEMATOCRIT 37.8 % (42.0-52.0); HEMOGLOBIN 12.9 g/dl (14.0-18.0); IMMATURE GRANULOCYTE % (AUTO) 0.4 % (0.0-5.0); LYMPHOCYTES % (AUTO) 12.5 (10.0-50.0); MEAN CORPUSCULAR HEMOGLOBIN 30.9 pg (27.0-31.0); MEAN CORPUSCULAR HGB CONC 34.1 (31.8-35.4); MEAN CORPUSCULAR VOLUME 90.4 fl (80.0-94.0); MONOCYTES # (AUTO) 1.3 K/uL (0.4-2.0); MONOCYTES % (AUTO) 15.9 (0-10); NEUTROPHILS # (AUTO) 5.8 K/ul (2.0-6.9); NEUTROPHILS % (AUTO) 69.1 % (42.2-75.2); PLATELET COUNT 207 10^3/uL (140-440); RDW COEFFICIENT OF VARIATION 12.6 % (11.6-14.8); RED BLOOD COUNT 4.18 10^6/ul (4.70-6.10); WHITE BLOOD COUNT 8.34 K/ul (4.2-10.2)
[2023-06-20 05:16] LABS: ALANINE AMINOTRANSFERASE 22.2 U/L (0-50); ALBUMIN 3.29 g/dL (3.5-5.0); ALKALINE PHOSPHATASE 61.3 U/L (56-119); ASPARTATE AMINO TRANSFERASE 33.4 U/L (17-59); BILIRUBIN,TOTAL 0.73 mg/dL (0.2-1.3); CALCIUM 8.33 mg/dL (8.4-10.2); CARBON DIOXIDE 28.8 mmol/L (22-30.0); CHLORIDE 105.1 mmol/L (98-107); CREATININE 1.32 mg/dL (0.60-1.10); GLUCOSE 103.7 mg/dL (74-106); POTASSIUM 4.29 mmol/L (3.5-5.1); SODIUM 136.9 mmol/L (134.5-145); TOTAL PROTEIN 6.46 g/dL (6.3-8.2)
[2023-06-20 05:18] VITALS: TEMP 97.6
[2023-06-20] MEDS: PRILOSEC PO SCH (05:30)
[2023-06-20] MEDS: LEXAPRO PO SCH (08:40)
[2023-06-20] MEDS: ROCEPHIN 1 GM/50 ML D5W 1 GM/50 ML BAG IV SCH (08:40)
[2023-06-20] MEDS: CORDARONE PO SCH (08:40)
[2023-06-20 09:34] VITALS: PULSE 73
[2023-06-20] MEDS: DOXY-100 100 MG in SODIUM CHLORIDE 100ML 100 ML IV SCH (09:44)
[2023-06-20 10:40] VITALS: BP 127/57
--- NOTE | 2023-06-20 10:46 | DCSUM ---
Admission Date Admission Date: 06/19/23 Discharge Date Discharge Date: 06/20/23 Admission Diagnosis Admission Diagnosis: 1. Syncope 2. Orthostatic hypotension Discharge Diagnosis Discharge Diagnosis: 1. Syncope in setting of orthostatic hypotension 2. Orthostatic hypotension, resolved 3. CAP, right 4. Hyponatremia, mild, resolved 5. PAF s/p cardioversion, chronic, stable 6. Hypertension, chronic, stable 7. GERD, chronic, stable Hospital Provider Hospital Provider: MARIA SCHULTZ PA-C, [facility] Primary Care Physician Primary Care Physician: ESTIVEN CARDONA Summary of History and Physical Summary of History and Physical: Patient is a 72-year-old male with past medical history of atrial fibrillation, hypertension, GERD who presented to the ER with complaint of syncope. He has had syncope in the past several years. He states he did not seek help most of the time. He had a syncopal episode earlier this week. He was evaluated in an ER in [place] and discharged from the ER. Today he was standing in his bathroom shaving whenever he felt lightheaded and passed out. He denies any significant injury. Upon arrival EMS states that his blood pressure was in the 80s systolic. He was also 89% on room air. In the ER he was found to have significant orthostatic hypotension with a systolic dropping from the 120s into the 70s. He also felt very symptomatic and like he was going to pass out again. He feels most comfortable lying flat. He states that he has had some dizziness on and off with positional changes. No recent medication changes. Denies chest pain although he did say he has been coughing lately and that is sometimes been painful. His chest x-ray in the ER did show some right-sided pneumonia. He was given doxycycline and fluids. Per cardiology notes, "he was diagnosed with afib in 2017 and spontaneously converted while inpatient. He reported back in 07/2019 with complaints of SOB, fatigue and orthopnea. He was noted to be in afib at that time and underwent a successful DCCV. He had a follow up EKG in 08/2019 that noted him to be back in afib. He was started on Amiodarone and underwent another successful DCCV in November 2019. He has since remained in NSR." Patient thought that he has had an echo in the last year. However the last one found in [facility] records was 2018. Hospital Course Subjective: Patient was treated with fluids and CA hose. On morning of discharge his orthostatics were normal. He did not have any dizziness or near syncope with standing or ambulating. His only complaint is he is having like a sharp stabbing pain in the back left side of his head. He states this has started since Saturday when he first had a syncopal episode. He states it is hard for him to get comfortable. It is coming and going feels almost nervelike. CT of cervical spine was ordered just to rule out any pathology there with the recent falls. It did not show anything acute. Exam of his ears were normal. No mastoid tenderness. We tried some muscle relaxers and gabapentin and heating pads. He has gotten minimal relief. We will try to continue the gabapentin and follow-up with his PCP. Encouraged heat packs over the weekend. Discussed with him the importance of no driving at this time until follow-up with PCP to ensure his blood pressure and everything is doing okay. He understands and agrees to plan of care. Discussed slow standing, bending etc. Fall precautions. Regarding his pneumonia he has been on room air. He is minimally symptomatic. We will continue Augmentin and doxycycline on discharge. Appearance: Pleasant, No Apparent Distress, Alert and Well-appearing HEENT: MMM and Supple CVS: No Murmur, No Rubs and No Gallop Abdomen: Soft, Non-Tender and No Distention Respiratory: No Accessory Muscle Use Extremities: No Edema Additional Findings: TMs clear samm. No mastoid tenderness. No abdnormalities of skin of posterior scalp Vital Signs: Most Recent Vital Signs Temperature 97.6 F 06/20/23 05:16 Temperature Source Temporal Artery Scan 06/20/23 05:16 Temperature Source Oral 06/19/23 07:32 Pulse Rate 73 06/20/23 10:00 Respiratory Rate 16 06/20/23 10:00 Blood Pressure 127/57 L 06/20/23 10:00 Blood Pressure Mean 80 06/20/23 10:00 Blood Pressure Right Arm 119/63 06/19/23 09:53 Blood Pressure Location Right Arm 06/20/23 10:00 Blood Pressure Position Standing 06/20/23 10:00 O2 Sat by Pulse Oximetry 95 06/20/23 10:00 Oxygen Delivery Method Room Air 06/20/23 10:00 Oxygen Flow Rate 2 06/19/23 21:29 Height 5 ft 8 in 06/19/23 09:53 Weight 204 lb 06/19/23 09:53 Telemetry Type Remote Telemetry 06/20/23 07:00 Telemetry Monitoring Continues 06/20/23 07:00 Irregular Telemetry Rate (Approximate) 50-60 BPM 06/19/23 10:52 Telemetry Heart Rate 58 L 06/20/23 07:00 EKG MI Interval 0.17 06/20/23 07:00 EKG QRS Interval 0.09 06/20/23 07:00 EKG QT Interval 0.40 06/19/23 19:00 Telemetry Strip Reading SR/SB 06/20/23 07:00 Imaging: EXAMINATION: CT OF THE HEAD WITHOUT CONTRAST. HISTORY:Fall. COMPARISON:12/03/2020. TECHNIQUE: CT acquisition images were obtained from skull base through vertex. Multiplanar reformats were obtained. No intravenous contrast. FINDINGS: Acute intracranial hemorrhage, mass effect, or midline shift: None. Ventricles and sulci: Congruent in size and configuration with mild age related atrophy.. Sherwood white differentiation: Maintained. Mild periventricular white matter low density. Basilar cisterns patent. The posterior fossa is without significant abnormality. No acute extra-axial collection. The extracalvarial soft tissues are without significant abnormalities. Mastoids and paranasal sinuses: Aerated. Carotid atherosclerosis: Present. Osseous structures: Intact without acute fracture. IMPRESSION: No acute intracranial abnormality. Age related atrophy with mild periventricular white matter low density most consistent with chronic microvascular ischemic change. EXAM: CHEST ONE-VIEW HISTORY: Syncope COMPARISON: 12/03/2020 CT of the chest FINDINGS: Cardiac silhouette is normal. Left lung is clear. Mild right perihilar interstitial opacities present. This is suspicious for viral or interstitial pneumonia. Pleural surfaces are unremarkable. IMPRESSION: Right perihilar interstitial opacities suspicious for viral or interstitial pneumonia. EXAM: CT CERVICAL SPINE WITHOUT INTRAVENOUS CONTRAST AND 01/29/2023. SAGITTAL AND CORONAL REFORMATTED IMAGES OBTAINED HISTORY: Neck pain and fall COMPARISON: 12/03/2020 FINDINGS: Straightening of the normal cervical lordosis. The vertebral bodies appear intact and the facet joints align normally. Multilevel chronic degenerative disc disease. Disc space narrowing most severe at C5-C6 and C6-C7. Multilevel anterior osteophyte formation throughout the cervical spine. Posterior osteophyte formation most prominent at C5-C6 and C6- C7. There is no evidence of acute fracture subluxation at any level. IMPRESSION: Chronic degenerative findings of the cervical spine. There is no acute post traumatic osseous abnormality. Lab Results Last 24 Hours: 06/20/23 06/19/23 06/19/23 04:45 10:27 07:50 WBC 8.34 RBC 4.18 L Hgb 12.9 L Hct 37.8 L MCV 90.4 MCH 30.9 MCHC 34.1 RDW Coeff of Efrain 12.6 Plt Count 207 Immature Gran % (Auto) 0.4 Neut % (Auto) 69.1 Lymph % (Auto) 12.5 [place] % (Auto) 15.9 H Eos % (Auto) 1.6 Baso % (Auto) 0.5 Neut # (Auto) 5.8 Lymph # (Auto) 1.0 [place] # (Auto) 1.3 Eos # (Auto) 0.1 Baso # (Auto) 0.0 Immature Gran # (Auto) 0.0 Sodium 136.9 Potassium 4.29 Chloride 105.1 Carbon Dioxide 28.8 Anion Gap 7.29 BUN 18.0 Creatinine 1.32 H Estimated GFR (MDRD) 53.00 BUN/Creatinine Ratio 13.63 Glucose 103.7 Calcium 8.33 L Total Bilirubin 0.73 AST 33.4 ALT 22.2 Alkaline Phosphatase 61.3 C-Reactive Prot, Quant 171 H Total Protein 6.46 Albumin 3.29 L Globulin 3.17 Albumin/Globulin Ratio 1.03 Ur Squamous Epith Cells Not present Triple Phos Crystals 1+ Urine Bacteria Trace Urine Mucus 3+ Discharge Instructions Discharge Planning: Discharge Planning > 70 minutes Discussed plan of care with Dr. Campbell Beckford. Discharge Medications: Medications at Discharge (Home Meds & RX) escitalopram oxalate 20 mg tablet (Lexapro) 1 tab PO DAILY 05/27/14 omeprazole magnesium 20 mg tablet,delayed release (Prilosec OTC) 20 mg PO DAILY 05/31/14 fluticasone propionate 50 mcg/actuation nasal spray,suspension (Flonase Allergy Relief) 2 spray NS DAILY #1 spray 01/08/17 amiodarone 200 mg tablet 200 mg PO DAILY 05/27/20 lisinopril 10 mg tablet 10 mg PO DAILY 05/27/20 rivaroxaban 20 mg tablet (Xarelto) 20 mg PO QPM 05/27/20 meclizine 25 mg tablet 25 mg PO TID PRN dizziness 06/19/23 ondansetron 4 mg disintegrating tablet 4 mg PO Q8H PRN nausea and vomiting 06/19/23 Discharge Plan Discharge Discharge Orders: Discharge Patient (ONCE); Ordered 06/20/23 Ordered By: MARIA SCHULTZ Activity Restrictions/Additional Instructions: DX: SYNCOPE, ORTHOSTATIC HYPOTENSION, PNEUMONIA DISCHARGE TO HOME NO DRIVING UNTIL F/U WITH PCP DIET: HEART HEALTHY ACTIVITY: TOLERATED. FALL PRECAUTIONS. STAND AND BEND OVER SLOWLY. WEAR CA HOSE FINISH ANTIBIOTICS, DOXYCYCLINE MAY MAKE YOUR SKIN SENSITIVE TO THE SUN YOU HAVE A FOLLOW UP WITH DR CARDONA'S OFFICE WITH ARNAV CRENSHAW ON SaturdayJUNE 24 10:45AM. SHOULD YOU HAVE ANY QUESTIONS OR NEED TO RESCHEDULE YOU CAN CONTACT THEIR OFFICE AT [phone]. YOU HAVE BEEN INSTRUCTED NOT TO DRIVE UNTIL YOU HAVE MEDICAL CLEARANCE FROM YOUR PROVIDER. Instructions: Syncope in Older Adults (GEN) Patient Disposition: HOME SELF-CARE Prescriptions: New gabapentin 100 mg capsule 100 mg PO BEDTIME Qty: 7 0RF amoxicillin-pot clavulanate 875-125 mg tablet 1 tab PO BID Qty: 14 0RF doxycycline monohydrate 100 mg capsule 100 mg PO BID 7 Days Qty: 14 0RF Continued fluticasone propionate [Flonase Allergy Relief] 9.9 ML spray,suspension 2 spray NS DAILY Qty: 1 escitalopram oxalate [Lexapro] 20 MG tablet 1 tab PO DAILY omeprazole magnesium [Prilosec OTC] 20 MG tablet,delayed release (DR/EC) 20 mg PO DAILY ondansetron 4 mg tablet,disintegrating 4 mg PO Q8H PRN (Reason: nausea and vomiting) meclizine 25 mg tablet 25 mg PO TID PRN (Reason: dizziness) amiodarone 200 mg Tablet 200 mg PO DAILY lisinopril 10 mg Tablet 10 mg PO DAILY Xarelto 20 mg Tablet 20 mg PO QPM Did you review [place] [employer] for ALL controlled substances?: No Discussed opioids are addictive and Narcan is available by prescription or from pharmacy.: No Condition: Fair
[2023-06-20] MEDS ORDERED: NEURONTIN PO ONE (11:12)
--- NOTE | 2023-06-20 12:12 | CT ---
EXAM: CT CERVICAL SPINE WITHOUT INTRAVENOUS CONTRAST AND 01/29/2023. SAGITTAL AND CORONAL REFORMATT ED IMAGES OBTAINED HISTORY: Neck pain and fall COMPARISON: 12/03/2020 FINDINGS: Straightening of the normal cervical lordosis. The vertebral bodies appear intact and the facet joints align normally. Multilevel chronic degenerative disc disease. Disc space narrowing most severe at C5-C6 and C6-C7. Multilevel anterior osteophyte formation throughout the cervical spine. Posterior osteophyte formati on most prominent at C5-C6 and C6-C7. There is no evidence of acute fracture subluxation at any level. IMPRESSION: Chronic degenerative findings of the cervical spine. There is no acute post traumatic o sseous abnormality. All CT scans are performed using dose optimization techniques as appropriate to the performed exam an d include at least one of the following: Automated exposure control, adjustment of the mA and/or kV according t o size, and the use of iterative reconstruction technique.
[2023-06-20] MEDS ORDERED: FLEXERIL PO ONE (12:23)
--- NOTE | 2023-06-21 12:13 | ECHO2D ---
Date of Exam: 06/19/2023 Ordering Physician: KATELINIST/ DR. CARDONA Room #: [id number] Reason for Echo: SYNCOPE M-Mode Normal Adult Results LV Dimensions Normal Adult Results AoV Opening excursions >1.6 >1.6 LVEDD-base- 3.5-5.8 4.9 Ao root dimensions 2.0-3.7 3.9 LVESD-base- 3.1-4.6 L. Atrium dimensions 1.9-3.8 3.9 Post. Wall thickness 0.8-1.1 1.2 IV septum (thickness) 0.7-1.2 1.2 Post. Wall excursion 0.72-1.3 NORMAL Septal motion NORMAL Systolic motion R. Ventricular cavity 1.5-2.0 NORMAL LVEF 60% 52% Paradoxical septal wall motion NORMAL 2-D : 2-D M Mode Echocardiogram was performed using apical four chamber and left parasternal long and short axis views. Mitral, tricuspid and aortic valves appear to be normal. Contractility of the left ventricle seems to be normal, so is the cavity size. Left atrial cavity size and aortic root appear to be normal. There is no pericardial effusion. There is no thrombus noted in the left ventricle or left atrial cavity. M-MODE: MV: NORMAL AV: NORMAL TV: NORMAL PV: CHAMBER SIZE: NORMAL WALL MOTION: NORMAL PERICARDIUM: NORMAL INTERPRETATION: 1. LEFT VENTRICLE HYPERTROPHY 2. NORMAL VALVES 3. NORMAL LEFT VENTRICLE CONTRACTILITY AND LEFT VENTRICLE SIZE MTDD
== END 2023-06-20 13:40 | disposition home or self-care (01) ==
LOC: ED 07:31 → MEDSURG B 07:31
PROVIDERS: ADMIT Hospitalist; ATTEND Physician Assistant
DX: I10 Essential (primary) hypertension; I48.0 Paroxysmal atrial fibrillation; I95.1 Orthostatic hypotension; J18.9 Pneumonia, unspecified organism; E87.1 Hypo-osmolality and hyponatremia; K21.9 Gastro-esophageal reflux disease without esophagitis

== ENCOUNTER 2024-07-12 08:42 | Observation (INO) ==
--- NOTE | 2024-07-12 09:11 | ED.PDOC ---
General ED Provider: Dr. ASHLEY LI MD Chief Complaint: Abdominal Pain Stated Complaint: Left lower quadrant abdominal pain Time Seen by Provider: 07/12/24 09:00 Information Source: Patient and Family Primary Care Provider: ESTIVEN CARDONA Nursing and Triage Documentation Reviewed and Agree: Yes What is Opioid Naive?: *Opioid Naive implies the patient is not already taking opioids or not chronically receiving opioids on a daily basis. *PRN dosing is not "usually" associated with tolerance. *Patients are at higher risk of over-sedation and aspiration. What is Opioid Tolerant?: *Opioid Tolerance implies less than the expected response to an opioid. *Acquired tolerance is defined by the patient taking 60mg of oral morphine daily (or equianalgesic dose of another opioid) for 1 week or more. *Often associated with chronic pain. *May take more than usual dose to achieve desired pain control. GI Complaint Exam Abdominal Pain Complaint/Exam Onset: Sudden Duration: Saturday Symptoms Are: Still present Timing: Constant Initial Severity: Moderate Current Severity: Moderate Location of Pain: LLQ and Suprapubic Character: Reports Aching Aggravating: Reports Movement Alleviating: Reports Rest Associated Signs and Symptoms: Reports Constipation and Urinary frequency; Denies Diaphoresis, Fever, Cough, Chest pain, Dizziness, Back pain, Blood in stool, Dysuria, Decreased urine output, Decreased appetite, Discharge, Nausea, Vomiting, Diarrhea or Decreased activity Differential Diagnoses: Constipation, Gastroenteritis and UTI Review of Systems Review Of Systems Constitutional: Reports No symptoms Eyes: Reports No symptoms Ears, Nose, Mouth, Throat: Reports No symptoms Respiratory: Reports No symptoms Cardiac: Reports No symptoms GI: Reports Abdominal pain and Constipated : Reports Frequency Musculoskeletal: Reports No symptoms Skin: Reports No symptoms Neurological: Reports No symptoms Endocrine: Reports No symptoms Hematologic/Lymphatic: Reports No symptoms All Other Systems: Reviewed and Negative [facility] Medical History Depression F32.9 - Major depressive disorder, single episode, unspecified (ICD-10) Family History Mother Diabetes FATHER Lung cancer Social History (Updated 06/19/23 @ 10:27 by MARIA SCHULTZ PA-C) Smoking and tobacco status: Never smoker Alcohol intake: never Substance use type: does not use Household members: spouse Current occupational status: employed Surgical History Status post appendectomy Z90.49 - Acquired absence of other specified parts of digestive tract (ICD- 10) Physical Exam Physical Exam Appearance: Reports Well-appearing, No pain distress and Well-nourished Ill-appearing: None Pain Distress: None Respiratory: Reports Airway patent, Breath sounds clear, Breath sounds equal and Respirations nonlabored Cardiovascular: Reports RRR, No rub and No murmur GI/: Reports Soft, No masses, Bowel sounds normal, No Organomegaly and Tender (Left lower quadrant, suprapubic) Musculoskeletal: Reports Normal strength, ROM intact, No edema and No calf tenderness Skin: Reports Warm, Dry and Normal color Neurological: Reports Sensation intact, Motor intact, Reflexes intact, Cranial nerves intact, Alert and Oriented Psychiatric: Reports Affect appropriate and Mood appropriate Critical Care Note Critical Care Note Total Critical Care Time (mins): 60 Comments: Patient with abdominal pain requiring admission for diagnosis of diverticulitis. Course Course 07/12/24 09:26 07/12/24 09:26 Orders, Labs, Meds: Lab Review 07/12/24 09:26 WBC 10.75 H RBC 5.06 Hgb 15.2 Hct 44.3 MCV 87.5 MCH 30.0 MCHC 34.3 RDW Coeff of Efrain 12.7 Plt Count 235 Immature Gran % (Auto) 0.4 Neut % (Auto) 68.1 Lymph % (Auto) 18.0 [place] % (Auto) 11.5 H Eos % (Auto) 1.3 Baso % (Auto) 0.7 Neut # (Auto) 7.3 H Lymph # (Auto) 1.9 [place] # (Auto) 1.2 Eos # (Auto) 0.1 Baso # (Auto) 0.1 Immature Gran # (Auto) 0.0 Sodium 137.4 Potassium 4.25 Chloride 106.6 Carbon Dioxide 20.9 L Anion Gap 14.15 BUN 13.4 Creatinine 1.43 H Estimated GFR (MDRD) 48.00 BUN/Creatinine Ratio 9.37 Glucose 117.8 H Calcium 9.27 Total Bilirubin 1.28 AST 33.4 ALT 27.2 Alkaline Phosphatase 78.9 Total Protein 8.18 Albumin 4.71 Globulin 3.47 Albumin/Globulin Ratio 1.35 Lipase 117.4 Urine Color Yellow Urine Clarity Clear Urine pH 5.5 Ur Specific [place] 1.010 Urine Protein Negative Urine Glucose (UA) Negative Urine Ketones Negative Urine Blood Negative Urine Nitrite Negative Urine Bilirubin Negative Urine Urobilinogen 0.2 Ur Leukocyte Esterase Negative Orders Category Date Time Status ADMIT OBSERVATION [PLACE PATIENT OBSERVATION] .TO ADMISSION 07/12/24 11:55 Active MEDSURG (NON-MONITORED BED) ADMIT OBSERVATION [PLACE PATIENT OBSERVATION] .TO ADMISSION 07/12/24 11:58 Active MEDSURG (NON-MONITORED BED) ED IV/MEDIPORT/POWERPORT .ONCE EMERGENCY 07/12/24 09:07 Active CBC W/ AUTO DIFF Stat LAB 07/12/24 09:26 Completed COMPREHENSIVE METABOLIC PANEL Stat LAB 07/12/24 09:26 Completed COVID [SARS COV-2 RNA RAPID NASIMA] Stat LAB 07/12/24 12:01 Ordered LIPASE Stat LAB 07/12/24 09:26 Completed URINALYSIS C & S IF INDICATED Stat LAB 07/12/24 09:26 Completed 0.9 % Sodium Chloride [Saline Flush] Meds 07/12/24 09:07 Active 1 syr IVF PRN PRN Piperacillin Sodium/Tazobactam [Zosyn 3.375 gm] 3.375 Meds 07/12/24 11:57 Active gm 0.9 % Sodium Chloride [Sodium Chloride 100Ml] 100 ml IV ONCE Sodium Chloride 0.9% [Sodium Chloride] 500 ml Meds 07/12/24 11:58 Active IV 250 mls/hr CT ABDOMEN/PELVIS WO CONTRAST Stat RADS 07/12/24 10:09 Completed Medications Generic Name Dose Route Start Last Admin Trade Name Freq PRN Reason Stop Dose Admin Piperacillin Sod/Tazobactam 100 mls @ 200 mls/hr 07/12/24 11:57 Sod 3.375 gm/ Sodium Chloride IV 07/12/24 12:26 ONCE ONE Sodium Chloride 500 mls @ 250 mls/hr 07/12/24 11:58 Sodium Chloride IV 07/12/24 13:57 .Q2H ONE Sodium Chloride 1 syr 07/12/24 09:07 0.9% Sodium Chloride 10 Ml Disp.Syrin IVF PRN PRN To flush IV Vital Signs: Temp Pulse Resp BP Pulse Ox 07/12/24 08:45 98.0 F 69 18 133/68 94 L Discharge Plan Discharge Patient Disposition: ADMITTED INPATIENT Discharge Problem: Diverticulitis 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 Loja presents to ER complaining of left lower quadrant abdominal pain. He reports the pain started Saturday. It worsened last night. He also reports urinary frequency and said he was up every hour going to the bathroom. He also is constipated and his gave him a laxative and he was able to have a small bowel movement earlier this morning. Patient was white count slightly elevated 18.75. His urinalysis is unremarkable. I ordered a CT scan and radiologist interpretation of the scan shows acute diverticulitis. Patient meets criteria for hospital admission due to his age of [age] years old. I called the nurse practitioner and she accepted him for admission. I told patient he would be admitted. I ordered IV fluids and Zosyn.
[2024-07-12 09:28] LABS: BASOPHILS # (AUTO) 0.1 K/uL (0-0.2); BASOPHILS % (AUTO) 0.7 % (0.0-3.0); EOSINOPHILS # (AUTO) 0.1 K/ul (0.0-0.7); EOSINOPHILS % (AUTO) 1.3 % (0.0-7.0); HEMATOCRIT 44.3 % (42.0-52.0); HEMOGLOBIN 15.2 g/dl (14.0-18.0); IMMATURE GRANULOCYTE % (AUTO) 0.4 % (0.0-5.0); LYMPHOCYTES # (AUTO) 1.9 K/uL (0.60-3.4); MEAN CORPUSCULAR HGB CONC 34.3 (31.8-35.4); MEAN CORPUSCULAR VOLUME 87.5 fl (80.0-94.0); MONOCYTES # (AUTO) 1.2 K/uL (0.4-2.0); MONOCYTES % (AUTO) 11.5 (0-10); NEUTROPHILS # (AUTO) 7.3 K/ul (2.0-6.9); NEUTROPHILS % (AUTO) 68.1 % (42.2-75.2); PLATELET COUNT 235 10^3/uL (140-440); RDW COEFFICIENT OF VARIATION 12.7 % (11.6-14.8); RED BLOOD COUNT 5.06 10^6/ul (4.70-6.10); WHITE BLOOD COUNT 10.75 K/ul (4.2-10.2)
[2024-07-12 09:29] LABS: BILIRUBIN,URINE Negative (NEGATIVE); CLARITY,URINE Clear (CLEAR); COLOR,URINE Yellow (YELLOW); GLUCOSE, URINE (UA) Negative (NEGATIVE); KETONES,URINE Negative (NEGATIVE); LEUKOCYTE ESTERASE ,URINE Negative (NEGATIVE); NITRITE,URINE Negative (NEGATIVE); PH,URINE 5.5 (5-9); PROTEIN,URINE Negative (NEGATIVE); URINE, BLOOD Negative (NEGATIVE); UROBILINOGEN,URINE 0.2 (0.2)
[2024-07-12 09:39] LABS: ALANINE AMINOTRANSFERASE 27.2 U/L (0-50); ALBUMIN 4.71 g/dL (3.5-5.0); ALKALINE PHOSPHATASE 78.9 U/L (56-119); ASPARTATE AMINO TRANSFERASE 33.4 U/L (17-59); BILIRUBIN,TOTAL 1.28 mg/dL (0.2-1.3); BLOOD UREA NITROGEN 13.4 mg/dL (9-20); CALCIUM 9.27 mg/dL (8.4-10.2); CARBON DIOXIDE 20.9 mmol/L (22-30.0); CHLORIDE 106.6 mmol/L (98-107); CREATININE 1.43 mg/dL (0.60-1.10); GLUCOSE 117.8 mg/dL (74-106); LIPASE 117.4 U/L (23-300); POTASSIUM 4.25 mmol/L (3.5-5.1); SODIUM 137.4 mmol/L (134.5-145); TOTAL PROTEIN 8.18 g/dL (6.3-8.2)
--- NOTE | 2024-07-12 11:46 | CT ---
EXAM: CT OF THE ABDOMEN AND PELVIS WITHOUT IV CONTRAST. HISTORY: Left lower quadrant abdominal pain COMPARISON: 12/03/2020 CT TECHNIQUE: Axial CT of the abdomen and pelvis without IV contrast. Sagittal and coronal reformats wer e obtained. FINDINGS: Lower thorax: Unremarkable. Noncontrast technique limits evaluation of abdominal viscera. Liver: Unremarkable. Biliary: The gallbladder is unremarkable. No bile duct dilatation. Spleen: No splenomegaly. Adrenals: No mass. Kidneys: Unremarkable. No calculus. No hydronephrosis. Pancreas: Unremarkable. Gastrointestinal tract: No abnormal bowel dilation is identified. Diverticulosis is identified. The re is wall thickening of a segment of proximal sigmoid colon with adjacent fat stranding. No free ai r or fluid collection is identified. Operative changes of the ascending colon identified. Lymph nodes: No abdominal or pelvic lymphadenopathy. Mesentery, peritoneum: No ascites or mass. Retroperitoneum: No mass. Vasculature:Mild arterial atherosclerotic disease without aneurysm. Pelvis: No mass, ascites or fluid collection. Bones/soft tissues: There is moderate to severe L4-5 degenerative disc disease and moderate multileve l facet arthropathy. There is a small fat-containing umbilical hernia. Small bilateral fat containin g inguinal hernias are also identified. IMPRESSION: Sigmoid diverticulitis. All CT scans are performed using dose optimization techniques as appropriate to the performed exam an d include at least one of the following: Automated exposure control, adjustment of the mA and/or kV according t o size, and the use of iterative reconstruction technique.
[2024-07-12] MEDS: SODIUM CHLORIDE 500 ML IV ONE (12:11)
[2024-07-12] MEDS: ZOSYN 3.375 GM 3.375 GM in SODIUM CHLORIDE 100ML 100 ML IV ONE (12:12)
[2024-07-12 12:17] LABS: SARS COV-2 RNA RAPID NAAT NEGATIVE (NEGATIVE)
[2024-07-12] MEDS ORDERED: ZOFRAN 4 MG/2 ML IVP PRN (12:20)
[2024-07-12] MEDS ORDERED: TYLENOL PO PRN (12:20)
[2024-07-12 13:13] VITALS: BMI 28.0
--- NOTE | 2024-07-12 13:45 | PCM ---
Date of Service Date Seen by Provider: 07/12/24 Admit Day/Time Admission Date: 07/12/24 Reason for Admission Chief Complaint: DIVERTICULITIS Hospital Provider Hospital Provider: OUSMANE PHAM, [facility] [place] Primary Care Physician: ARNAV CRENSHAW History of Present Illness History of Present Illness: 73 yo male presented to the ER with complaints of LLQ abdominal pain. States the pain started 2-3 days ago at rest. Has had difficulty sleeping at night due to the pain. Denies any fever, chills, bloody stools, vomit, or other symptoms. Denies any pmh of diverticulitis in the past. Has been eating trail mix on a regular basis recently compared to normal. Mild WBC count elevation. Sigmoid diverticulitis noted on CT scan. Admitted to med/surg observation. Case Discussed With Case Discussed With: Patient's case was discussed with the ER Physicians, Dr. Murray. [facility] Medical History (Updated 07/12/24 @ 13:46 by OUSMANE PHAM) Atrial fibrillation I48.91 - Unspecified atrial fibrillation (ICD-10) Depression F32.9 - Major depressive disorder, single episode, unspecified (ICD-10) Surgical History Status post appendectomy Z90.49 - Acquired absence of other specified parts of digestive tract (ICD- 10) Family History Mother Diabetes FATHER Lung cancer Social History Smoking and tobacco status: Never smoker Alcohol intake: never Substance use type: does not use Household members: spouse Current occupational status: employed Allergies Allergies Allergy/AdvReac Type Severity Reaction Status Date / Time No Known Allergies Allergy Verified 07/12/24 08:55 Current Medications Home Medications escitalopram oxalate 20 mg tablet (Lexapro) 1 tab PO DAILY 05/27/14 [History Confirmed 07/12/24 Last Taken 05/27/14] rivaroxaban 20 mg tablet (Xarelto) 20 mg PO QPM 05/27/20 [History Confirmed 07/12/24 Last Taken 07/11/24 17:00 20 mg] metoprolol succinate 50 mg tablet,extended release 24 hr 25 mg PO DAILY 04/21/24 [History Confirmed 07/12/24 Last Taken 07/12/24 07:00 25 mg] ergocalciferol (vitamin D2) 1,250 mcg (50,000 unit) capsule 1,250 mcg PO WEEKLY 07/12/24 [History Confirmed 07/12/24 Last Taken 06/29/24 07:00 1,250 mcg] flecainide 50 mg tablet 50 mg PO 2XD 07/12/24 [History Confirmed 07/12/24 Last Taken 07/12/24 07:00 50 mg] lisinopril 5 mg tablet 5 mg PO DAILY 07/12/24 [History Confirmed 07/12/24 Last Taken 07/12/24 07:00 5 mg] Home Acetaminophen (Acetaminophen 325 Mg Tablet) 650 mg PO Q4H PRN PRN Reason: Mild Pain Escitalopram Oxalate (Escitalopram Oxalate 10 Mg Tablet) 20 mg PO DAILY [facility] Flecainide Acetate (Flecainide Acetate 100 Mg Tablet) 50 mg PO BID [facility] Piperacillin Sod/Tazobactam (Sod 3.375 gm/ Sodium Chloride) 100 mls @ 200 mls/hr IV Q6HR [facility] Stop: 07/15/24 17:59 Lisinopril (Lisinopril 5 Mg Tablet) 5 mg PO DAILY [facility] Metoprolol Succinate (Metoprolol Succinate 25 Mg Tab.Er.24h) 25 mg PO DAILY [facility] Ondansetron HCl (Ondansetron Hcl/Pf 4 Mg/2 Ml Sdv) 4 mg IVP Q6H PRN PRN Reason: Nausea / Vomiting Rivaroxaban (Rivaroxaban 10 Mg Tablet) 20 mg PO QPM [facility] Sodium Chloride (0.9% Sodium Chloride 10 Ml Disp.Syrin) 1 syr IVF PRN PRN PRN Reason: To flush IV Discontinued Medications Piperacillin Sod/Tazobactam (Sod 3.375 gm/ Sodium Chloride) 100 mls @ 200 mls/hr IV ONCE ONE Stop: 07/12/24 12:26 Last Admin: 07/12/24 12:12 Dose: 200 mls/hr Sodium Chloride (Sodium Chloride) 500 mls @ 250 mls/hr IV .Q2H ONE Stop: 07/12/24 13:57 Last Admin: 07/12/24 12:11 Dose: 250 mls/hr Opioid Naive vs. Tolerant Does Patient Take Opioids?: No Is Patient Opioid Naive?: Yes What is Opioid Naive?: *Opioid Naive implies the patient is not already taking opioids or not chronically receiving opioids on a daily basis. *PRN dosing is not "usually" associated with tolerance. *Patients are at higher risk of over-sedation and aspiration. Is Patient Opioid Tolerant?: No What is Opioid Tolerant?: *Opioid Tolerance implies less than the expected response to an opioid. *Acquired tolerance is defined by the patient taking 60mg of oral morphine daily (or equianalgesic dose of another opioid) for 1 week or more. *Often associated with chronic pain. *May take more than usual dose to achieve desired pain control. Review of Systems Constitutional: Reports No symptoms Head: Reports Normocephalic Eyes: Reports No symptoms Ears: Reports No symptoms Nose: Reports No symptoms Mouth: Reports No symptoms Throat: Reports No symptoms Cardiovascular: Reports No symptoms Respiratory: Reports No symptoms Gastrointestinal: Reports Abdominal pain (LLQ) Genitourinary: Reports No Symptoms Musculoskeletal: Reports No symptoms Endocrine: Reports No symptoms Hematology: Reports No symptoms Immunology: Reports No symptoms Neurological: Reports No symptoms Psychiatric: Reports No symptoms Physical examination Most Recent Vital Signs: Most Recent Vital Signs Temperature 98 F 07/12/24 12:42 Temperature Source Temporal Artery Scan 07/12/24 12:42 Temperature Source Infrared 07/12/24 08:45 Pulse Rate 51 L 07/12/24 12:42 Respiratory Rate 16 07/12/24 12:42 Blood Pressure 133/68 07/12/24 08:45 Blood Pressure Left Arm 146/79 07/12/24 12:42 Blood Pressure Position Supine 07/12/24 12:42 O2 Sat by Pulse Oximetry 95 07/12/24 12:42 Oxygen Delivery Method Room Air 07/12/24 12:42 Height 5 ft 11 in 07/12/24 12:42 Weight 201 lb 5 oz 07/12/24 12:42 Telemetry Heart Rate 58 L 06/20/23 07:00 Appearance: Positive No Apparent Distress and Alert and Oriented x3 Skin: Positive Warm and Good Turgor HEENT: Positive Normocephalic and PERRLA Neck: Positive Supple and Midline Trachea Chest/Lungs: Positive Symmetrical With Equal Breath Sounds, Clear to Auscultation Bilaterally and Good Air Movement all 4 Lung [place] Heart: Positive RRR and Pulses Normal GI/: Positive Soft, Nontender (RUQ, RLQ, LUQ), Bowel Sounds Normal, No Distention and Tender (LLQ) Musculoskeletal: Positive Normal Gait and Station Extremities: Positive Intact Peripheral Pulses, Stable Joints Without Laxity and Good ROM in All Joints Neurological: Positive Sensation Intact, Motor intact, Alert, Oriented and Muscle Strength 5/5 in Upper and Lower Extremities Bilaterally Labs This Visit Labs This Visit: Labs This Visit 07/12/24 07/12/24 09:26 12:01 WBC 10.75 H RBC 5.06 Hgb 15.2 Hct 44.3 MCV 87.5 MCH 30.0 MCHC 34.3 RDW Coeff of Efrain 12.7 Plt Count 235 Immature Gran % (Auto) 0.4 Neut % (Auto) 68.1 Lymph % (Auto) 18.0 [place] % (Auto) 11.5 H Eos % (Auto) 1.3 Baso % (Auto) 0.7 Neut # (Auto) 7.3 H Lymph # (Auto) 1.9 [place] # (Auto) 1.2 Eos # (Auto) 0.1 Baso # (Auto) 0.1 Immature Gran # (Auto) 0.0 Sodium 137.4 Potassium 4.25 Chloride 106.6 Carbon Dioxide 20.9 L Anion Gap 14.15 BUN 13.4 Creatinine 1.43 H Estimated GFR (MDRD) 48.00 BUN/Creatinine Ratio 9.37 Glucose 117.8 H Calcium 9.27 Total Bilirubin 1.28 AST 33.4 ALT 27.2 Alkaline Phosphatase 78.9 Total Protein 8.18 Albumin 4.71 Globulin 3.47 Albumin/Globulin Ratio 1.35 Lipase 117.4 Urine Color Yellow Urine Clarity Clear Urine pH 5.5 Ur Specific [place] 1.010 Urine Protein Negative Urine Glucose (UA) Negative Urine Ketones Negative Urine Blood Negative Urine Nitrite Negative Urine Bilirubin Negative Urine Urobilinogen 0.2 Ur Leukocyte Esterase Negative SARS CoV-2 RNA Rapid NASIMA Negative Imaging Imaging: EXAM: CT OF THE ABDOMEN AND PELVIS WITHOUT IV CONTRAST. FINDINGS: Lower thorax: Unremarkable. Noncontrast technique limits evaluation of abdominal viscera. Liver: Unremarkable. Biliary: The gallbladder is unremarkable. No bile duct dilatation. Spleen: No splenomegaly. Adrenals: No mass. Kidneys: Unremarkable. No calculus. No hydronephrosis. Pancreas: Unremarkable. Gastrointestinal tract: No abnormal bowel dilation is identified. Diverticulosis is identified. There is wall thickening of a segment of proximal sigmoid colon with adjacent fat stranding. No free air or fluid collection is identified. Operative changes of the ascending colon identified. Lymph nodes: No abdominal or pelvic lymphadenopathy. Mesentery, peritoneum: No ascites or mass. Retroperitoneum: No mass. Vasculature:Mild arterial atherosclerotic disease without aneurysm. Pelvis: No mass, ascites or fluid collection. Bones/soft tissues: There is moderate to severe L4-5 degenerative disc disease and moderate multilevel facet arthropathy. There is a small fat-containing umbilical hernia. Small bilateral fat containing inguinal hernias are also identified. IMPRESSION: Sigmoid diverticulitis. Review Statement Review Statement: I have independently reviewed and interpreted the labs/EKGs/imaging that were ordered by the ER provider. I have reviewed all outside records that are available currently in our EMR including imaging/notes/labs from previous visits. Plan Plan: 1. Acute Sigmoid Diverticulitis - Zosyn Q6H, Clear liquid diet - advance as tolerated 2. A fib - chronic, not in RVR, continue home medications 3. Hypertension - chronic, continue home medications 4. Depression - chronic, continue home medications DVT Prophylaxis: Xarelto Time Spent: Greater than 80 minutes spent with patient, 50% of the time spent with this patient was devoted to counseling and coordination of care. [facility]in minutes spent discussing advance care planning. Disposition: Admit to: Med/Surg Observation Discussed Plan of Care with Dr. Ciro Beckford. Medications Medication Orders: Medications Ordered Category Date Time Status 0.9 % Sodium Chloride [Saline Flush] Meds 07/12/24 09:07 Active 1 syr IVF PRN PRN Acetaminophen [Tylenol] Meds 07/12/24 12:20 Active 650 mg PO Q4H PRN Escitalopram Oxalate [Lexapro] Meds 07/13/24 09:00 Active 20 mg PO DAILY Flecainide Acetate [Tambocor] Meds 07/12/24 21:00 Active 50 mg PO BID Lisinopril [Zestril] Meds 07/13/24 09:00 Active 5 mg PO DAILY Metoprolol Succinate [Toprol Xl] Meds 07/13/24 09:00 Active 25 mg PO DAILY Ondansetron HCl/Pf [Zofran 4 mg/2 ml] Meds 07/12/24 12:20 Active 4 mg IVP Q6H PRN Piperacillin Sodium/Tazobactam [Zosyn 3.375 gm] 3.375 Meds 07/12/24 18:00 Active gm 0.9 % Sodium Chloride [Sodium Chloride 100Ml] 100 ml IV Q6HR Rivaroxaban [Xarelto] Meds 07/12/24 17:00 Active 20 mg PO QPM
[2024-07-12] MEDS: TORADOL IVP PRN (14:37)
[2024-07-12] MEDS: XARELTO PO SCH (17:31)
[2024-07-12] MEDS: ZOSYN 3.375 GM 3.375 GM in SODIUM CHLORIDE 100ML 100 ML IV SCH (17:34)
[2024-07-12] MEDS: TAMBOCOR PO SCH (20:30)
[2024-07-13 05:15] LABS: BASOPHILS # (AUTO) 0.1 K/uL (0-0.2); BASOPHILS % (AUTO) 0.7 % (0.0-3.0); EOSINOPHILS # (AUTO) 0.2 K/ul (0.0-0.7); EOSINOPHILS % (AUTO) 2.3 % (0.0-7.0); HEMATOCRIT 39.8 % (42.0-52.0); HEMOGLOBIN 13.6 g/dl (14.0-18.0); IMMATURE GRANULOCYTE % (AUTO) 0.5 % (0.0-5.0); LYMPHOCYTES # (AUTO) 2.3 K/uL (0.60-3.4); LYMPHOCYTES % (AUTO) 27.6 (10.0-50.0); MEAN CORPUSCULAR HEMOGLOBIN 30.2 pg (27.0-31.0); MEAN CORPUSCULAR HGB CONC 34.2 (31.8-35.4); MEAN CORPUSCULAR VOLUME 88.4 fl (80.0-94.0); MONOCYTES # (AUTO) 1.1 K/uL (0.4-2.0); MONOCYTES % (AUTO) 13.2 (0-10); NEUTROPHILS # (AUTO) 4.5 K/ul (2.0-6.9); NEUTROPHILS % (AUTO) 55.7 % (42.2-75.2); PLATELET COUNT 201 10^3/uL (140-440); RDW COEFFICIENT OF VARIATION 12.6 % (11.6-14.8); WHITE BLOOD COUNT 8.16 K/ul (4.2-10.2)
[2024-07-13 05:18] VITALS: PULSE 46
[2024-07-13 05:35] LABS: ALANINE AMINOTRANSFERASE 21.8 U/L (0-50); ALBUMIN 3.89 g/dL (3.5-5.0); ALKALINE PHOSPHATASE 69.2 U/L (56-119); ASPARTATE AMINO TRANSFERASE 26.5 U/L (17-59); BILIRUBIN,TOTAL 2.16 mg/dL (0.2-1.3); BLOOD UREA NITROGEN 14.1 mg/dL (9-20); CALCIUM 8.56 mg/dL (8.4-10.2); CARBON DIOXIDE 26.6 mmol/L (22-30.0); CHLORIDE 106.7 mmol/L (98-107); CREATININE 1.59 mg/dL (0.60-1.10); POTASSIUM 4.41 mmol/L (3.5-5.1); SODIUM 138.7 mmol/L (134.5-145); TOTAL PROTEIN 6.84 g/dL (6.3-8.2)
[2024-07-13] MEDS: LEXAPRO PO SCH (08:38)
[2024-07-13] MEDS: ZESTRIL PO SCH (08:38)
[2024-07-13] MEDS: TOPROL XL PO SCH (08:38)
--- NOTE | 2024-07-13 09:15 | DCSUM ---
Admission Date Admission Date: 07/12/24 Discharge Date Discharge Date: 07/13/24 Admission Diagnosis Admission Diagnosis: 1. Acute Sigmoid Diverticulitis Discharge Diagnosis Discharge Diagnosis: 1. Acute Sigmoid Diverticulitis 2. A fib 3. Hypertension 4. Depression Hospital Provider Hospital Provider: MARIA SCHULTZ PA-C, [facility] Primary Care Physician Primary Care Physician: ARNAV CRENSHAW Summary of History and Physical Summary of History and Physical: 73 yo male presented to the ER with complaints of LLQ abdominal pain. States the pain started 2-3 days ago at rest. Has had difficulty sleeping at night due to the pain. Denies any fever, chills, bloody stools, vomit, or other symptoms. Denies any pmh of diverticulitis in the past. Has been eating trail mix on a regular basis recently compared to normal. Mild WBC count elevation. Sigmoid diverticulitis noted on CT scan. Admitted to med/surg observation. Hospital Course Subjective: Patient's pain improved. No n/v. Able to tolerate PO. Tolerated advanced diet well. Labwork stable. VSS. Will discharge home on augmentin x9 more days. F/u with PCP. Recommend outpatient colonoscopy in 6-8 weeks. Pt agrees to plan of care. Appearance: Pleasant, No Apparent Distress and Alert HEENT: MMM and Supple CVS: No Murmur Abdomen: Soft, No Distention and Other (+mild LLQ tenderness, improved ) Respiratory: No Accessory Muscle Use Extremities: No Edema Vital Signs: Most Recent Vital Signs Temperature 97.6 F 07/13/24 05:17 Temperature Source Temporal Artery Scan 07/12/24 21:14 Temperature Source Infrared 07/12/24 08:45 Pulse Rate 46 L 07/13/24 05:17 Respiratory Rate 16 07/13/24 07:20 Blood Pressure 130/68 07/13/24 05:17 Blood Pressure Mean 88 07/13/24 05:17 Blood Pressure Left Arm 146/79 07/12/24 12:42 Blood Pressure Location Left Arm 07/13/24 05:17 Blood Pressure Position Supine 07/13/24 05:17 O2 Sat by Pulse Oximetry 94 L 07/13/24 05:17 Oxygen Delivery Method Room Air 07/13/24 09:00 Height 5 ft 11 in 07/12/24 12:42 Weight 201 lb 5 oz 07/12/24 12:42 Telemetry Heart Rate 58 L 06/20/23 07:00 Imaging: EXAM: CT OF THE ABDOMEN AND PELVIS WITHOUT IV CONTRAST. HISTORY: Left lower quadrant abdominal pain COMPARISON: 12/03/2020 CT TECHNIQUE: Axial CT of the abdomen and pelvis without IV contrast. Sagittal and coronal reformats were obtained. FINDINGS: Lower thorax: Unremarkable. Noncontrast technique limits evaluation of abdominal viscera. Liver: Unremarkable. Biliary: The gallbladder is unremarkable. No bile duct dilatation. Spleen: No splenomegaly. Adrenals: No mass. Kidneys: Unremarkable. No calculus. No hydronephrosis. Pancreas: Unremarkable. Gastrointestinal tract: No abnormal bowel dilation is identified. Diverticulosis is identified. There is wall thickening of a segment of proximal sigmoid colon with adjacent fat stranding. No free air or fluid collection is identified. Operative changes of the ascending colon identified. Lymph nodes: No abdominal or pelvic lymphadenopathy. Mesentery, peritoneum: No ascites or mass. Retroperitoneum: No mass. Vasculature:Mild arterial atherosclerotic disease without aneurysm. Pelvis: No mass, ascites or fluid collection. Bones/soft tissues: There is moderate to severe L4-5 degenerative disc disease and moderate multilevel facet arthropathy. There is a small fat-containing umbilical hernia. Small bilateral fat containing inguinal hernias are also identified. IMPRESSION: Sigmoid diverticulitis. Lab Results Last 24 Hours: 07/13/24 07/12/24 07/12/24 05:02 12:01 09:26 WBC 8.16 10.75 H RBC 4.50 L 5.06 Hgb 13.6 L 15.2 Hct 39.8 L 44.3 MCV 88.4 87.5 MCH 30.2 30.0 MCHC 34.2 34.3 RDW Coeff of Efrain 12.6 12.7 Plt Count 201 235 Immature Gran % (Auto) 0.5 0.4 Neut % (Auto) 55.7 68.1 Lymph % (Auto) 27.6 18.0 [place] % (Auto) 13.2 H 11.5 H Eos % (Auto) 2.3 1.3 Baso % (Auto) 0.7 0.7 Neut # (Auto) 4.5 7.3 H Lymph # (Auto) 2.3 1.9 [place] # (Auto) 1.1 1.2 Eos # (Auto) 0.2 0.1 Baso # (Auto) 0.1 0.1 Immature Gran # (Auto) 0.0 0.0 Sodium 138.7 137.4 Potassium 4.41 4.25 Chloride 106.7 106.6 Carbon Dioxide 26.6 20.9 L Anion Gap 9.81 14.15 BUN 14.1 13.4 Creatinine 1.59 H 1.43 H Estimated GFR (MDRD) 43.00 48.00 BUN/Creatinine Ratio 8.86 9.37 Glucose 98.0 117.8 H Calcium 8.56 9.27 Total Bilirubin 2.16 H 1.28 AST 26.5 33.4 ALT 21.8 27.2 Alkaline Phosphatase 69.2 78.9 Total Protein 6.84 8.18 Albumin 3.89 4.71 Globulin 2.95 3.47 Albumin/Globulin Ratio 1.31 1.35 Lipase 117.4 Urine Color Yellow Urine Clarity Clear Urine pH 5.5 Ur Specific [place] 1.010 Urine Protein Negative Urine Glucose (UA) Negative Urine Ketones Negative Urine Blood Negative Urine Nitrite Negative Urine Bilirubin Negative Urine Urobilinogen 0.2 Ur Leukocyte Esterase Negative SARS CoV-2 RNA Rapid NASIMA Negative Discharge Instructions Discharge Planning: Discharge Planning > [address] Campbell Beckford. Discharge Medications: Medications at Discharge (Home Meds & RX) Discharge Plan Discharge Discharge Orders: Discharge Patient (ONCE); Ordered 07/13/24 Ordered By: MARIA SCHULTZ Activity Restrictions/Additional Instructions: DISCHARGE TO HOME DIET: PROGRESS TOLERATED ACTIVITY: TOLERATED DX: DIVERTICULITIS FINISH ANTIBIOTICS F/U WITH PCP Instructions: Diverticulitis (ED), Diverticulitis Diet (GEN) Patient Disposition: HOME SELF-CARE Prescriptions: New amoxicillin-pot clavulanate 875-125 mg tablet 1 tab PO Q8H 9 Days Qty: 27 0RF Continued escitalopram oxalate [Lexapro] 20 MG tablet 1 tab PO DAILY metoprolol succinate 50 mg tablet extended release 24 hr 25 mg PO DAILY Patient Comments: TAKE 1 TABLET BY MOUTH DAILY flecainide 50 mg tablet 50 mg PO 2XD lisinopril 5 mg tablet 5 mg PO DAILY ergocalciferol (vitamin D2) 1,250 mcg (50,000 unit) capsule 1,250 mcg PO WEEKLY Xarelto 20 mg Tablet 20 mg PO QPM Did you review [place] [employer]UTION PROFESSIONAL for ALL controlled substances?: Not Applicable Discussed opioids are addictive and Narcan is available by prescription or from pharmacy.: No Condition: Stable Referrals: ARNAV CRENSHAW, JESSICA,MINE SUPERINTENDENT [Primary Care Provider] - 07/24/24 11:00 am
[2024-07-13 10:36] VITALS: BP 147/80; RESP 18; TEMP 97.4
== END 2024-07-13 13:20 | disposition home or self-care (01) ==
LOC: MEDSURG B 08:42 → ED 08:42 → MEDSURG B 12:35
PROVIDERS: ADMIT Hospitalist; ATTEND Physician Assistant
DX: R35.0 Frequency of micturition; K59.00 Constipation, unspecified; K57.32 Diverticulitis of large intestine without perforation or abscess without bleeding; I48.91 Unspecified atrial fibrillation; I10 Essential (primary) hypertension; F32.A Depression, unspecified; Z20.822 Contact with and (suspected) exposure to COVID-19

== ENCOUNTER 2025-01-02 13:53 | Observation (INO) ==
[2025-01-02 14:37] LABS: BASOPHILS % (AUTO) 0.2 % (0.0-3.0); EOSINOPHILS # (AUTO) 0.1 K/ul (0.0-0.7); EOSINOPHILS % (AUTO) 0.6 % (0.0-7.0); HEMATOCRIT 37.9 % (42.0-52.0); HEMOGLOBIN 12.8 g/dl (14.0-18.0); IMMATURE GRANULOCYTE # (AUTO) 0.1 (0.0-1.0); IMMATURE GRANULOCYTE % (AUTO) 0.7 % (0.0-5.0); LYMPHOCYTES # (AUTO) 0.5 K/uL (0.60-3.4); LYMPHOCYTES % (AUTO) 2.6 (10.0-50.0); MEAN CORPUSCULAR HEMOGLOBIN 30.4 pg (27.0-31.0); MEAN CORPUSCULAR HGB CONC 33.8 (31.8-35.4); MONOCYTES # (AUTO) 1.6 K/uL (0.4-2.0); MONOCYTES % (AUTO) 8.3 (0-10); NEUTROPHILS # (AUTO) 16.6 K/ul (2.0-6.9); NEUTROPHILS % (AUTO) 87.6 % (42.2-75.2); PLATELET COUNT 179 10^3/uL (140-440); RDW COEFFICIENT OF VARIATION 12.9 % (11.6-14.8); RED BLOOD COUNT 4.21 10^6/ul (4.70-6.10); WHITE BLOOD COUNT 18.94 K/ul (4.2-10.2)
[2025-01-02 14:56] LABS: MOLECULAR FLU A NEGATIVE BY NAAT (NEGATIVE); MOLECULAR FLU B NEGATIVE BY NAAT (NEGATIVE); SARS COV-2 RNA RAPID NAAT NEGATIVE (NEGATIVE)
--- NOTE | 2025-01-02 14:58 | ED.PDOC ---
General ED Provider: Dr. SETH FINN MD Chief Complaint: Syncope Stated Complaint: 74 years old male with history of syncope, orthostasis, diverticulosis, comes emergency room for syncope and fall. Patient has been complaining of some weakness and dyspnea on exertion and body pains for the last few days. Patient reports episodes of dizziness only when he is moving which provokes him to throw up he had multiple episodes of nonbloody nonbilious vomiting. He denies any fever, chest pain. Time Seen by Provider: 01/02/25 14:36 Information Source: Patient, Family and EMT Primary Care Provider: ARNAV [facility] Nursing and Triage Documentation Reviewed and Agree: Yes What is Opioid Naive?: *Opioid Naive implies the patient is not already taking opioids or not chronically receiving opioids on a daily basis. *PRN dosing is not "usually" associated with tolerance. *Patients are at higher risk of over-sedation and aspiration. What is Opioid Tolerant?: *Opioid Tolerance implies less than the expected response to an opioid. *Acquired tolerance is defined by the patient taking 60mg of oral morphine daily (or equianalgesic dose of another opioid) for 1 week or more. *Often associated with chronic pain. *May take more than usual dose to achieve desired pain control. Review of Systems Review Of Systems Constitutional: Reports No symptoms PENDING SALE TO [facility] Medical History (Updated 01/02/25 @ 20:00 by SETH FINN MD) Atrial fibrillation I48.91 - Unspecified atrial fibrillation (ICD-10) Depression F32.9 - Major depressive disorder, single episode, unspecified (ICD-10) Family History Mother Diabetes FATHER Lung cancer Social History Smoking and tobacco status: Never smoker Alcohol intake: never Substance use type: does not use Household members: spouse Current occupational status: employed Surgical History Status post appendectomy Z90.49 - Acquired absence of other specified parts of digestive tract (ICD- 10) Physical Exam Physical Exam Appearance: Reports Well-appearing ENT: Reports Ears normal and Nose normal Neck: Supple Respiratory: Reports Airway patent, Breath sounds clear and Breath sounds equal Cardiovascular: Reports RRR, Pulses normal, No rub and No murmur GI/: Reports Soft, No masses, Bowel sounds normal, No Organomegaly and Tender (Mild in left lower quadrant) Musculoskeletal: Reports Normal strength and ROM intact Neurological: Reports Sensation intact and Motor intact Psychiatric: Reports Affect appropriate Interpretation EKG Interpretation EKG Interpretation By: ED Physician Time of EKG #1: 14:24 Rate: Normal Rhythm: Sinus Ectopy: None [place]: NL ST Segment: Normal Interpretation: No signs of acute ischemia Course Course 01/02/25 14:30 01/02/25 14:30 Orders, Labs, Meds: Lab Review 01/02/25 01/02/25 01/02/25 14:20 14:30 15:33 WBC 18.94 H RBC 4.21 L Hgb 12.8 L Hct 37.9 L MCV 90.0 MCH 30.4 MCHC 33.8 RDW Coeff of Efrain 12.9 Plt Count 179 Immature Gran % (Auto) 0.7 Neut % (Auto) 87.6 H Lymph % (Auto) 2.6 L [place] % (Auto) 8.3 Eos % (Auto) 0.6 Baso % (Auto) 0.2 Neut # (Auto) 16.6 H Lymph # (Auto) 0.5 L [place] # (Auto) 1.6 Eos # (Auto) 0.1 Baso # (Auto) 0.0 Immature Gran # (Auto) 0.1 Sodium 133.9 L Potassium 3.99 Chloride 103.1 Carbon Dioxide 21.7 L Anion Gap 13.09 BUN 20.3 H Creatinine 1.40 H Estimated GFR (MDRD) 50.00 BUN/Creatinine Ratio 14.50 Glucose 150.2 H Calcium 8.37 L Total Bilirubin 2.94 H AST 25.3 ALT 20.9 Alkaline Phosphatase 60.4 Total Protein 6.62 Albumin 3.68 Globulin 2.94 Albumin/Globulin Ratio 1.25 Urine Color Yellow Urine Clarity Clear Urine pH 7.0 Ur Specific [place] 1.020 Urine Protein 1+ H Urine Glucose (UA) Negative Urine Ketones Negative Urine Blood Negative Urine Nitrite Negative Urine Bilirubin Negative Urine Urobilinogen 1.0 H Ur Leukocyte Esterase 1+ H Urine Microscopic WBC 2-5 Ur Squamous Epith Cells 0-2 Influ A Molecular Assay Negative by naat Influ B Molecular Assay Negative by naat SARS CoV-2 RNA Rapid NASIMA Negative Orders Category Date Time Status EKG-(ED ONLY) Stat CARDIO 01/02/25 14:14 Completed NPO REMINDER: IMAGING ONCE CARE 01/02/25 17:27 Active CBC W/ AUTO DIFF Stat LAB 01/02/25 14:30 Completed CMP [COMPREHENSIVE METABOLIC PANEL] Stat LAB 01/02/25 14:30 Completed COVID [SARS COV-2 RNA RAPID NASIMA] Stat LAB 01/02/25 14:20 Completed FLU A & B MOLECULAR [FLU A/B MOLECULAR] Stat LAB 01/02/25 14:20 Completed URINALYSIS C & S IF INDICATED Stat LAB 01/02/25 15:33 Completed Iodixanol [Visipaque 320 mg/ml 100Ml] Meds 01/02/25 17:47 Discontinued 100 ml IVP ONCE ONE Meclizine HCl [Antivert] Meds 01/02/25 14:58 Discontinued 25 mg PO ONCE STA Ondansetron HCl/Pf [Zofran Sdv] Meds 01/02/25 14:58 Discontinued 4 mg IM ONCE STA Piperacillin Sodium/Tazobactam [Zosyn 3.375 gm] 3.375 Meds 01/02/25 19:08 Discontinued gm 0.9 % Sodium Chloride [Sodium Chloride 100Ml] 100 ml IV ONCE Sodium Chloride 0.9% [Sodium Chloride] 1,000 ml Meds 01/02/25 15:[address] ABDOMEN/PELVIS W CONTRAST Stat RADS 01/02/25 17:[address] HEAD W/O CONTRAST Stat RADS 01/02/25 14:14 Completed CXR [CHEST, 1V AP ONLY] Stat RADS 01/02/25 17:26 Completed Medications Discontinued Medications Generic Name Dose Route Start Last Admin Trade Name Freq PRN Reason Stop Dose Admin Sodium Chloride 1,000 mls @ 1,000 mls/hr 01/02/25 15:23 01/02/25 16:40 Sodium Chloride IV 01/02/25 16:22 Infused BOLUS ONE Infusion Piperacillin Sod/Tazobactam 100 mls @ 200 mls/hr 01/02/25 19:08 01/02/25 19:37 Sod 3.375 gm/ Sodium Chloride IV 01/02/25 19:37 200 mls/hr ONCE ONE Administration Iodixanol 100 ml 01/02/25 17:47 01/02/25 17:48 Iodixanol 320 Mg/Ml 100ml IVP 01/02/25 17:48 100 ml ONCE ONE Administration Meclizine HCl 25 mg 01/02/25 14:58 01/02/25 15:04 Meclizine Hcl 25 Mg Tablet PO 01/02/25 14:59 25 mg ONCE STA Administration Ondansetron HCl 4 mg 01/02/25 14:58 01/02/25 15:04 Ondansetron Hcl/Pf 4 Mg/2 Ml Sdv IM 01/02/25 14:59 4 mg ONCE STA Administration Vital Signs: Temp Pulse Resp BP Pulse Ox 01/02/25 19:34 66 109/52 L 01/02/25 19:32 66 117/61 01/02/25 19:30 62 107/53 L 01/02/25 13:56 97.7 F 74 17 123/52 L 94 L 74 years old male with history of diverticulosis and orthostatic hypotension coming for syncope and fall. Orthostatic vitals are negative ,CT head did not show any acute findings chest x-ray is negative as per radiology interpretation CBC showing leukocytosis with left shift urine showing 1+ leukocyte esterase CT scan abdomen pelvis with IV contrast showed possible early acute diverticulitis patient received around 2 L of fluids was given a dose of Zosyn Zofran. T. bili is 2.9 with normal liver enzymes gallbladder and biliary tree is normal on the CT. Patient does not seem to be fluid overloaded and he is on Xarelto for A-fib and has been taking his medication consistently. EKG showed normal sinus rhythm at 67 no signs of acute ischemia. On ambulation patient desaturates to 88 and gets dyspneic there is no URI symptoms no pneumonia on the chest x-ray no signs of fluid overload patient does not have COPD no wheezes on the chest on physical exam. I called the hospitalist on-call discussed the patient case with her and she accepted patient to be admitted under observation for IV antibiotics and possibly CTA chest tomorrow since the patient already received contrast today. The only diagnosis on the differential is if the patient is getting PE on top of his Xarelto and the tachycardia is masked by the metoprolol otherwise I do not have any explanation for his dyspnea on exertion. Discharge Plan Discharge Patient Disposition: PLACED OBSERVATION Discharge Problem: Diverticulitis, Syncope Did you review [place] [employer]PER[employer]OX [employer] for ALL controlled substances?: Not Applicable ED Provider: SETH FINN Condition: Stable
[2025-01-02 15:03] LABS: ALANINE AMINOTRANSFERASE 20.9 U/L (0-50); ALBUMIN 3.68 g/dL (3.5-5.0); ALKALINE PHOSPHATASE 60.4 U/L (56-119); ASPARTATE AMINO TRANSFERASE 25.3 U/L (17-59); BILIRUBIN,TOTAL 2.94 mg/dL (0.2-1.3); BLOOD UREA NITROGEN 20.3 mg/dL (9-20); CALCIUM 8.37 mg/dL (8.4-10.2); CARBON DIOXIDE 21.7 mmol/L (22-30.0); CHLORIDE 103.1 mmol/L (98-107); CREATININE 1.4 mg/dL (0.60-1.10); GLUCOSE 150.2 mg/dL (74-106); POTASSIUM 3.99 mmol/L (3.5-5.1); SODIUM 133.9 mmol/L (134.5-145); TOTAL PROTEIN 6.62 g/dL (6.3-8.2)
[2025-01-02] MEDS: ANTIVERT PO STA (15:04)
[2025-01-02] MEDS: ZOFRAN SDV IM STA (15:04)
[2025-01-02] MEDS: SODIUM CHLORIDE 1,000 ML IV ONE (15:40)
[2025-01-02 15:42] LABS: BILIRUBIN,URINE Negative (NEGATIVE); CLARITY,URINE Clear (CLEAR); COLOR,URINE Yellow (YELLOW); GLUCOSE, URINE (UA) Negative (NEGATIVE); KETONES,URINE Negative (NEGATIVE); LEUKOCYTE ESTERASE ,URINE 1+ (NEGATIVE); NITRITE,URINE Negative (NEGATIVE); PROTEIN,URINE 1+ (NEGATIVE); URINE, BLOOD Negative (NEGATIVE)
--- NOTE | 2025-01-02 15:57 | CT ---
EXAM: CT OF THE HEAD WITHOUT CONTRAST. HISTORY: Syncope. COMPARISON: 06/19/2023 CT. TECHNIQUE: Axial noncontrast CT of the head. Sagittal and coronal reformats were obtained. FINDINGS: No intracranial hemorrhage or mass effect is identified. The sulci and ventricles are normal in size and configuration. Mild periventricular white matter hypodensities are identified. No deshpande white ma tter differentiation loss is seen to suggest an acute infarct. The calvarium is intact. The visualized paranasal sinuses are unopacified. IMPRESSION: No evidence of an acute intracranial process. Mild chronic small vessel ischemic changes. All CT scans are performed using dose optimization techniques as appropriate to the performed exam an d include at least one of the following: Automated exposure control, adjustment of the mA and/or kV according t o size, and the use of iterative reconstruction technique.
[2025-01-02 17:15] LABS: SQUAMOUS EPITHELIAL CELL,UR 0-2 (0-5)
[2025-01-02] MEDS: VISIPAQUE 320 MG/ML 100ML IVP ONE (17:48)
--- NOTE | 2025-01-02 18:45 | CT ---
EXAM: CT OF THE ABDOMEN AND PELVIS WITH CONTRAST TECHNIQUE: CT of the abdomen and pelvis was performed with contrast. Multiplanar reformats were perf ormed. 100 ml Visipaque 320 HISTORY: Abdominal pain COMPARISON: 07/12/2024 FINDINGS: Imaged lower thorax: Bibasilar atelectasis right greater than left. Liver: Hepatic steatosis. Gallbladder/Bile Ducts: No biliary dilation. The gallbladder is normal. Spleen: Unremarkable. Pancreas: Normal. Adrenals: No discrete lesions. Kidneys/Ureters: No acute findings. Bowel/mesentery/peritoneum: No bowel obstruction. Absent appendix. No free fluid or free air.There is fluid within small bowel without significant distension. Could be seen with diarrhea or enteritis. Diverticulosis is present in the sigmoid colon. There is a subtle degree of stranding. May reflect early recurrent diverticulitis.. Retroperitoneum/vessels: No aortic aneurysm. No adenopathy. Pelvis: Uniform bladder wall.Mild thickening.. Bones: Disc bulge at L4-5.No acute fracture. IMPRESSION: 1. Diverticulosis. 2. Suspect a early diverticulitis. 3. Bibasilar atelectasis. 4. Post appendectomy. All CT scans are performed using dose optimization techniques as appropriate to the performed exam an d includes at least one of the following: Automated exposure control, adjustment of the mA and/or kV according to size, and the use of iterative reconstruction technique. All CT scans are performed using dose optimization techniques as appropriate to the performed exam an d include at least one of the following: Automated exposure control, adjustment of the mA and/or kV according t o size, and the use of iterative reconstruction technique.
--- NOTE | 2025-01-02 18:58 | DI ---
EXAM: CHEST FRONTAL VIEW HISTORY: Cough COMPARISON: 04/21/2024 IMPRESSION: Prominent heart size again noted. No acute infiltrates are seen. No vascular congestion. There is n o consolidation, visible pleural fluid or pneumothorax. Bones reveal no acute abnormality. - - - - -
[2025-01-02] MEDS: ZOSYN 3.375 GM 3.375 GM in SODIUM CHLORIDE 100ML 100 ML IV ONE (19:37)
[2025-01-02] MEDS ORDERED: ZOFRAN SDV IVP PRN (20:30)
[2025-01-02 20:47] VITALS: BMI 29.7
[2025-01-02] MEDS: LACTATED RINGERS 1,000 ML IV SCH (21:09)
[2025-01-02] MEDS: XARELTO PO SCH (21:17)
[2025-01-02 21:54] VITALS: RESP 18
[2025-01-03] MEDS: ZOSYN 3.375 GM 3.375 GM in SODIUM CHLORIDE 100ML 100 ML IV SCH (00:19)
[2025-01-03 05:03] LABS: BASOPHILS % (AUTO) 0.2 % (0.0-3.0); EOSINOPHILS % (AUTO) 0.1 % (0.0-7.0); HEMATOCRIT 36.3 % (42.0-52.0); HEMOGLOBIN 12.2 g/dl (14.0-18.0); IMMATURE GRANULOCYTE # (AUTO) 0.1 (0.0-1.0); IMMATURE GRANULOCYTE % (AUTO) 0.5 % (0.0-5.0); LYMPHOCYTES # (AUTO) 1.3 K/uL (0.60-3.4); LYMPHOCYTES % (AUTO) 8.2 (10.0-50.0); MEAN CORPUSCULAR HEMOGLOBIN 30.2 pg (27.0-31.0); MEAN CORPUSCULAR HGB CONC 33.6 (31.8-35.4); MEAN CORPUSCULAR VOLUME 89.9 fl (80.0-94.0); MONOCYTES # (AUTO) 1.3 K/uL (0.4-2.0); MONOCYTES % (AUTO) 8.3 (0-10); NEUTROPHILS # (AUTO) 12.7 K/ul (2.0-6.9); NEUTROPHILS % (AUTO) 82.7 % (42.2-75.2); PLATELET COUNT 173 10^3/uL (140-440); RDW COEFFICIENT OF VARIATION 12.9 % (11.6-14.8); RED BLOOD COUNT 4.04 10^6/ul (4.70-6.10)
[2025-01-03 05:15] LABS: ALANINE AMINOTRANSFERASE 20.6 U/L (0-50); ALBUMIN 3.5 g/dL (3.5-5.0); ALKALINE PHOSPHATASE 60.3 U/L (56-119); ASPARTATE AMINO TRANSFERASE 25.6 U/L (17-59); BILIRUBIN,TOTAL 2.62 mg/dL (0.2-1.3); BLOOD UREA NITROGEN 21.3 mg/dL (9-20); CALCIUM 8.44 mg/dL (8.4-10.2); CARBON DIOXIDE 23.2 mmol/L (22-30.0); CHLORIDE 105.9 mmol/L (98-107); CREATININE 1.41 mg/dL (0.60-1.10); GLUCOSE 115.4 mg/dL (74-106); POTASSIUM 3.91 mmol/L (3.5-5.1); SODIUM 134.7 mmol/L (134.5-145); TOTAL PROTEIN 6.54 g/dL (6.3-8.2)
[2025-01-03] MEDS: LEXAPRO PO SCH (08:07)
[2025-01-03] MEDS: FLONASE NAS SCH (08:07)
[2025-01-03] MEDS: ZESTRIL PO SCH (08:08)
[2025-01-03] MEDS: TOPROL XL PO SCH (08:08)
[2025-01-03 09:42] VITALS: BP 115/49; PULSE 63; TEMP 98.6
--- NOTE | 2025-01-03 10:17 | PCM.SS ---
Provider Provider[facility] Date Admission Date: 01/02/25 Discharge Date Discharge Date: 01/03/25 Primary Care Physician Primary Care Physician: ARNAV CRENSHAW Chief Complaint Reason For Visit: SYNCOPE,DIVERTICALITIS History of Present Illness History of Present Illness: Admitted 01/02/25 19:55, this 74 year old /WHITE/M with pmhx of diverticulitis, recurrent syncope, orthostatic hypotension, a fib s/p ablation, hypertension, who presents to the ER for vomiting and syncopal episode. Patient states he actually started vomiting on 01/01. He had multiple episodes. He had some associated dizziness at that time. He felt somewhat better by end of day. Then 01/02 he got up to walk to the bathroom and felt very off balance, lightheaded, and states he had a couple episodes of vomiting and passed out. He is unsure how long he had passed out for. He remembers EMS showing up. In the ER, Ct head was negative. Orthostats negative. CXR normal. CT abd/pelvis showed early signs of acute diverticulitis, which patient had an episode of earlier in 2023. He had complained of some dyspnea and was noted to be 88% with ambulation. However patient states he has been very compliant with his blood thinner. No hx of pe/dvt. PT admitted to med surg for syncope and diverticulitis. He was given zosyn and fluids. Today, patient feels at his baseline. He has been ambulatory without difficulty. No vomiting since admission. He actually ate as soon as he was on the floor due to being hungry. He denies fever or diarrhea. He admits to some LLQ pain and some burning with urination. He downplays the vomiting and syncope episode stating "that's happened for years now". He contributes to an inner ear problem. Pt had been admitted in 2022 for syncope but was orthostatic at that time as well. Pt states he's had an echo in the past year. Denies chest pain or sob today. He was ambulated with the nurse and never dropped below 95%. He is requesting discharge stating he's feeling much better. We discussed close follow up with pcp. Will dc on augmentin for early diverticulitis and dysuria. Patient agrees to plan of care. [facility] Medical History Atrial fibrillation I48.91 - Unspecified atrial fibrillation (ICD-10) Depression F32.9 - Major depressive disorder, single episode, unspecified (ICD-10) Surgical History Status post appendectomy Z90.49 - Acquired absence of other specified parts of digestive tract (ICD- 10) Family History Mother Diabetes FATHER Lung cancer Social History Smoking and tobacco status: Never smoker Alcohol intake: never Substance use type: does not use Household members: spouse Current occupational status: employed Medications Mecications: Medications at Discharge (Home Meds & RX) escitalopram oxalate 20 mg tablet (Lexapro) 1 tab PO DAILY 05/27/14 rivaroxaban 20 mg tablet (Xarelto) 20 mg PO QPM 05/27/20 metoprolol succinate 50 mg tablet,extended release 24 hr 25 mg PO DAILY 04/21/24 ergocalciferol (vitamin D2) 1,250 mcg (50,000 unit) capsule 1,250 mcg PO WEEKLY 07/12/24 lisinopril 5 mg tablet 5 mg PO DAILY 07/12/24 fluticasone propionate 50 mcg/actuation nasal spray,suspension 2 spray intranasal DAILY 01/02/25 Allergies Allergies Allergy/AdvReac Type Severity Reaction Status Date / Time No Known Allergies Allergy Verified 01/02/25 14:17 Review of Systems Constitutional: Denies Fever, Fatigue or Weakness Head: Reports Normocephalic and Atraumatic Cardiovascular: Reports Syncope; Denies Chest pain, Chest Pressure, Edema or Palpitations Respiratory: Denies Cough or Shortness of air Gastrointestinal: Reports Vomiting (resolved ) and Abdominal pain (+LLQ); Denies Nausea or Diarrhea Genitourinary: Reports Dysuria; Denies Hematuria or Frequency Neurological: Reports Dizziness and Syncope; Denies Headache, Weakness or Problems with walking Physical Examination Appearance: Positive Well-appearing, Well-nourished, No Apparent Distress and Alert and Oriented x3 Head: Positive Normocephalic and Atraumatic Eyes: Positive QUITA and EOMI Neck: Positive Supple, Non-Tender, No Lynphadenopathy and Trachea Midline Heart: Positive RRR Respiratory: Positive Breath Sounds Clear, Bilaterally and Respirations Nonlabored; Negative Crackles, Rhonchi or Wheezes GI/: Positive Soft, Bowel sounds normal and No Distention; Negative Nontender (+LLQ tenderness, mild ) Extremities: Negative Edema Neurological: Positive Cranial nerves intact, Recent Memory Intact, Sensation Intact, Alert and Oriented Psychiatric: Positive Normal Judgement, Normal Insight, Affect Appropriate and Mood Appropriate Vital Signs (Last 4 Hours) Vital Signs Last 4 Hours: Vital Signs: Last 4 Hours 01/03/25 07:00 01/03/25 07:00 01/03/25 08:00 Temperature Temperature Source Pulse Rate Respiratory Rate Blood Pressure Blood Pressure Mean Blood Pressure Location Blood Pressure Position O2 Sat by Pulse Oximetry Oxygen Delivery Method Room Air Room Air Telemetry Type Remote Telemetry Telemetry Monitoring Continues Telemetry Heart Rate 62 EKG HI Interval 0.16 EKG QRS Interval 0.08 Telemetry Strip Reading sr 01/03/25 08:00 01/03/25 08:37 01/03/25 08:39 Temperature Temperature Source Pulse Rate 63 Respiratory Rate Blood Pressure 115/49 L Blood Pressure Mean Blood Pressure Location Right Arm Blood Pressure Position Supine O2 Sat by Pulse Oximetry Oxygen Delivery Method Room Air Room Air Telemetry Type Telemetry Monitoring Telemetry Heart Rate EKG HI Interval EKG QRS Interval Telemetry Strip Reading 01/03/25 09:15 01/03/25 09:38 01/03/25 09:38 Temperature Temperature Source Pulse Rate 69 73 Respiratory Rate Blood Pressure 118/65 118/63 Blood Pressure Mean Blood Pressure Location Right Arm Right Arm Blood Pressure Position Sitting Standing O2 Sat by Pulse Oximetry Oxygen Delivery Method Room Air Telemetry Type Telemetry Monitoring Telemetry Heart Rate EKG HI Interval EKG QRS Interval Telemetry Strip Reading 01/03/25 09:40 Temperature 98.6 F Temperature Source Temporal Artery Scan Pulse Rate 63 Respiratory Rate 18 Blood Pressure 115/49 L Blood Pressure Mean 71 Blood Pressure Location Right Arm Blood Pressure Position Supine O2 Sat by Pulse Oximetry 94 L Oxygen Delivery Method Room Air Telemetry Type Telemetry Monitoring Telemetry Heart Rate EKG HI Interval EKG QRS Interval Telemetry Strip Reading Labs This Visit Labs This Visit: Labs This Visit 01/02/25 01/02/25 01/02/25 14:20 14:30 15:33 WBC 18.94 H RBC 4.21 L Hgb 12.8 L Hct 37.9 L MCV 90.0 MCH 30.4 MCHC 33.8 RDW Coeff of [place] 12.9 Plt Count 179 Immature Gran % (Auto) 0.7 Neut % (Auto) 87.6 H Lymph % (Auto) 2.6 L [place] % (Auto) 8.3 Eos % (Auto) 0.6 Baso % (Auto) 0.2 Neut # (Auto) 16.6 H Lymph # (Auto) 0.5 L [place] # (Auto) 1.6 Eos # (Auto) 0.1 Baso # (Auto) 0.0 Immature Gran # (Auto) 0.1 Sodium 133.9 L Potassium 3.99 Chloride 103.1 Carbon Dioxide 21.7 L Anion Gap 13.09 BUN 20.3 H Creatinine 1.40 H Estimated GFR (MDRD) 50.00 BUN/Creatinine Ratio 14.50 Glucose 150.2 H Calcium 8.37 L Total Bilirubin 2.94 H AST 25.3 ALT 20.9 Alkaline Phosphatase 60.4 Total Protein 6.62 Albumin 3.68 Globulin 2.94 Albumin/Globulin Ratio 1.25 Urine Color Yellow Urine Clarity Clear Urine pH 7.0 Ur Specific [place] 1.020 Urine Protein 1+ H Urine Glucose (UA) Negative Urine Ketones Negative Urine Blood Negative Urine Nitrite Negative Urine Bilirubin Negative Urine Urobilinogen 1.0 H Ur Leukocyte Esterase 1+ H Urine Microscopic WBC 2-5 Ur Squamous Epith Cells 0-2 Influ A Molecular Assay Negative by naat Influ B Molecular Assay Negative by naat SARS CoV-2 RNA Rapid NASIMA Negative 01/03/25 04:50 WBC 15.40 H RBC 4.04 L Hgb 12.2 L Hct 36.3 L MCV 89.9 MCH 30.2 MCHC 33.6 RDW Coeff of [place] 12.9 Plt Count 173 Immature Gran % (Auto) 0.5 Neut % (Auto) 82.7 H Lymph % (Auto) 8.2 L [place] % (Auto) 8.3 Eos % (Auto) 0.1 Baso % (Auto) 0.2 Neut # (Auto) 12.7 H Lymph # (Auto) 1.3 [place] # (Auto) 1.3 Eos # (Auto) 0.0 Baso # (Auto) 0.0 Immature Gran # (Auto) 0.1 Sodium 134.7 Potassium 3.91 Chloride 105.9 Carbon Dioxide 23.2 Anion Gap 9.51 BUN 21.3 H Creatinine 1.41 H Estimated GFR (MDRD) 49.00 BUN/Creatinine Ratio 15.10 Glucose 115.4 H Calcium 8.44 Total Bilirubin 2.62 H AST 25.6 ALT 20.6 Alkaline Phosphatase 60.3 Total Protein 6.54 Albumin 3.50 Globulin 3.04 Albumin/Globulin Ratio 1.15 Urine Color Urine Clarity Urine pH Ur Specific [place] Urine Protein Urine Glucose (UA) Urine Ketones Urine Blood Urine Nitrite Urine Bilirubin Urine Urobilinogen Ur Leukocyte Esterase Urine Microscopic WBC Ur Squamous Epith Cells Influ A Molecular Assay Influ B Molecular Assay SARS CoV-2 RNA Rapid NASIMA Imaging Imaging: EXAM: CT OF THE HEAD WITHOUT CONTRAST. HISTORY: Syncope. COMPARISON: 06/19/2023 CT. TECHNIQUE: Axial noncontrast CT of the head. Sagittal and coronal reformats were obtained. FINDINGS: No intracranial hemorrhage or mass effect is identified. The sulci and ventric les are normal in size and configuration. Mild periventricular white matter hypodensities are identified. No deshpande white matter differentiation loss is seen to suggest an acute infarct. The calvarium is intact. The visualized paranasal sinuses are unopacified. IMPRESSION: No evidence of an acute intracranial process. Mild chronic small vessel ischemic changes. EXAM: CT OF THE ABDOMEN AND PELVIS WITH CONTRAST TECHNIQUE: CT of the abdomen and pelvis was performed with contrast. Multiplanar reformats were performed. 100 ml Visipaque 320 HISTORY: Abdominal pain COMPARISON: 07/12/2024 FINDINGS: Imaged lower thorax: Bibasilar atelectasis right greater than left. Liver: Hepatic steatosis. Gallbladder/Bile Ducts: No biliary dilation. The gallbladder is normal. Spleen: Unremarkable. Pancreas: Normal. Adrenals: No discrete lesions. Kidneys/Ureters: No acute findings. Bowel/mesentery/peritoneum: No bowel obstruction. Absent appendix. No free fluid or free air.There is fluid within small bowel without significant distension. Could be seen with diarrhea or enteritis. Diverticulosis is present in the sigmoid colon. There is a subtle degree of stranding. May reflect early recurrent diverticulitis.. Retroperitoneum/vessels: No aortic aneurysm. No adenopathy. Pelvis: Uniform bladder wall.Mild thickening.. Bones: Disc bulge at L4-5.No acute fracture. IMPRESSION: 1. Diverticulosis. 2. Suspect a early diverticulitis. 3. Bibasilar atelectasis. 4. Post appendectomy. EXAM: CHEST FRONTAL VIEW HISTORY: Cough COMPARISON: 04/21/2024 IMPRESSION: Prominent heart size again noted. No acute infiltrates are seen. No vascular congestion. There is no consolidation, visible pleural fluid or pneumothorax. Bones reveal no acute abnormality. - - - - - Review Review Statement: I have independently reviewed and interpreted the labs/EKGs/imaging that were ordered by the ER provider. I have reviewed all outside records that are available currently in our EMR including imaging/notes/labs from previous visits. Plan Reccomendations/Plan: 1. Syncopal episode - Rechecked orthostats which were negative. CT head neg. Tele. Asymptomatic today. Pt has had multiple episodes of syncope in the past. Echo from 03/18 showed EF 61-65% with normal diastolic function. 2. Early diverticulitis - Since patient had episode in 2023 and having LLQ pain, elevated WBC count and potentially associated vomiting? - will treat with abx. Zosyn ordered. 3. Dyspnea - Unclear etiology. CXR negative. Pt asymptomatic today. On RA. Ambulated without difficulty or desaturation. 4. PAF - s/p ablation on 08/03/[address] Taveras. Cont home meds. 5. Hypertension - Cont home meds Today, patient feels at his baseline. He has been ambulatory without difficulty. No vomiting since admission. He actually ate as soon as he was on the floor due to being hungry. He denies fever or diarrhea. He admits to some LLQ pain and some burning with urination. He downplays the vomiting and syncope episode stating "that's happened for years now". He contributes to an inner ear problem. Pt had been admitted in for syncope but was orthostatic at that time as well. Pt states he's had an echo in the past year. Denies chest pain or sob today. He was ambulated with the nurse and never dropped below 95%. He is requesting discharge stating he's feeling much better. We discussed close follow up with pcp. Will dc on augmentin for early diverticulitis and dysuria. Patient agrees to plan of care. Avoid driving until pcp follow up. 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 1. Syncopal episode 2. Early diverticulitis 3. PAF 4. Hypertension Additional Planning: Case discussed with ED Physician, Dr. Lozoya. DVT Prophylaxis: Xarelto Advanced Care Plannin minutes spent discussing advance care planning. Admit to: Obs Discussed Plan of Care with Dr. Campbell Beckford. Review With Patient Reviewed with Patient and Family: Patient and family have been counseled on condition and care plan and have no immediate questions. I have personally discussed and reviewed the patient's visit/current labs/imaging/decision making with Dr. Campbell Beckford, my supervising attending. Total number of minutes spent with patient [85] min. More than 50% of the time spent with this patient was devoted to counseling and coordination of care. Time of Admission:01/02/25 19:55 Time of Discharge: 01/03/25 1030 Discharge Plan Discharge Discharge Orders: Discharge Patient (ONCE); Ordered 01/03/25 Ordered By: MARIA SCHULTZ Activity Restrictions/Additional Instructions: DISCHARGE TO HOME FOLLOW UP WITH PCP THIS WEEK AVOID DRIVING UNTIL PCP FOLLOW UP DX: SYNCOPE, DIVERTICULITIS PHARMACY: [facility] Instructions: Syncope (DC) Care Plan Goals: Problem: Syncope Goal: Maintain safety during syncopal episodes Instructions: Have assistance with activity Change positions slowly during syncopal episodes Patient Disposition: HOME SELF-CARE Prescriptions: New amoxicillin-pot clavulanate 875-125 mg tablet 1 tab PO BID 10 Days Qty: 20 0RF ondansetron 4 mg tablet,disintegrating 4 mg PO Q6-8H PRN (Reason: nausea and vomiting) Qty: 10 0RF Continued escitalopram oxalate [Lexapro] 20 MG tablet 1 tab PO DAILY metoprolol succinate 50 mg tablet extended release 24 hr 25 mg PO DAILY Patient Comments: TAKE 1 TABLET BY MOUTH DAILY lisinopril 5 mg tablet 5 mg PO DAILY ergocalciferol (vitamin D2) 1,250 mcg (50,000 unit) capsule 1,250 mcg PO WEEKLY fluticasone propionate 50 mcg/actuation spray,suspension 2 spray INTRANASAL DAILY Xarelto 20 mg Tablet 20 mg PO QPM Did you review [place] ASSISTANT DIRECTOR OF ADMISSIONS for ALL controlled substances?: Not Applicable Discussed opioids are addictive and Narcan is available by prescription or from pharmacy.: No Condition: Stable
[2025-01-03] MEDS: TYLENOL PO PRN (10:28)
== END 2025-01-03 11:00 | disposition home or self-care (01) ==
LOC: ED 13:53 → MEDSURG B 13:53
PROVIDERS: ADMIT Hospitalist; ATTEND Physician Assistant